=== PATIENT | male | born 1985 | race Caucasian/White ===

== ENCOUNTER 2024-12-21 11:36 | Outpatient (CLI) | payer BC, SELFPAY ==
--- NOTE | ~2024-12-21 | MR_ITS ---
MRI of the brain Clinical History: Headache Technique: Axial and sagittal T1-weighted images were acquired. These were followed by axial T2-weigh mirlande, diffusion weighted, gradient, and FLAIR images. Following intravenous administration of 20 cc Pr oHance gadolinium, T1-weighted fat-sat imaging was performed in the axial and coronal planes. Findings: No significant signal abnormality seen in the brain parenchyma. No acute infarct, internal hemorrhage, or mass lesion. Ventricles and subarachnoid spaces are unremarkable. Orbits are unremarkable. Paranasal sinuses and m astoid air cells are clear. Major arterial flow voids are intact. Sagittal midline structures are intact. No abnormal postcontrast enhancement identified. IMPRESSION: Unremarkable exam. Reviewed, dictated and finalized at location M. IMPRESSION: Unremarkable exam.
--- NOTE | ~2024-12-21 | XR_ITS ---
EXAM/PROCEDURE: XR chest 1V - 12/21/2024 12:15 CDT HISTORY: 39 years old Male with RULE OUT FOREIGN BODY FOR MRI TECHNIQUE: Two view(s) of the chest. COMPARISON: None available. FINDINGS: LUNGS/ PLEURA: No focal consolidation. No appreciable pneumothorax or large pleural effusion. HEART/ MEDIASTINUM: Heart appears normal in size. BONES: No acute osseous abnormality. OTHER: Visualized upper abdomen is unremarkable. IMPRESSION: No foreign body seen. Reviewed, dictated and finalized at location A. IMPRESSION: No foreign body seen.
--- OUTSIDE RECORDS SUMMARY | 2024-12-21 11:39 | XMS_ITS | Clinical Summary ---
Author Organization [facility] Care Team Providers Care Wireless Cellular Technician Name Role Phone Unavailable Primary Care Provider Unavailabl e Social History Tobacco Use Types Packs/Day Years Used Date Smoking Tobacco: Never Assessed Sex and Gender Information Value Date Recorded Sex Assigned at Not on file Legal Sex Male 1:52 PM [employer] Gender Identity Not on file Sexual Orientation Not on file Plan of Treatment Health Maintenance Due Date Last Done Comments Hepatitis C Virus (HCV) Screening 1987 Hepatitis B Immunization (1 of 3 - 19+ 3-dose series) 2006 Influenza Immunization (#1) 05/12/202407/12, 07/22/2020 SARS-COV-2 Immunization ( season) 2024 07/29/2021 Respiratory Syncytial Virus (RSV) Immunization (Adult) (1 - 1-dose 75+ series) 2062 Pneumococcal Immunization Combined Aged Out 11/29/2015 No longer eligible based on patient's age to complete this topic DTaP/Tdap/Td Immunization Discontinued 07/29/2021 TdaP Immunization Completed 07/29/2021 Meningococcal Immunization (ACWY) Aged Out No longer eligible based on patient's age to complete this topic Rotavirus Immunization Aged Out No lo nger eligible based on patient's age to complete this topic
--- OUTSIDE RECORDS SUMMARY | 2024-12-21 11:39 | XMS_ITS | Continuity of Care Document ---
Author Organization [facility] Address [address] [place] [address] [place] [address] Phone Care Team Providers Care Frame Catcher Name Role Phone Pato Husain MD Unavailable Unavailable Allergies, Adverse Reactions, Alerts Substance Reaction Status Criticality No Known Allergies Active No Inform ation Medications Medication Instructions Dosage Effective Dates (start - stop) Status Comments Ativan 0.5 mg tablet take 1 Tablet by oral route every day as needed as needed 0.5 MG - Active take 1/2 tarik r before MRI, avoid driving or operate machines Crestor 10 mg tablet take 1 tablet by oral route every day 10 MG - Active nebivolol 20 mg tablet take 1.5 Tablet by oral route every day 30 MG - Active Problems Condition Type Effective Dates (start - stop) Clini severo Status Comments No Known Problems Procedures Procedure Date OFFICE/OUTPATIENT VISIT, EST OFFICE/OUTPATIENT VISIT, EST OFFICE/OUTPATIENT VISIT, EST OFFICE/OUTPATIENT VISIT, EST OFFICE/OUTPATIENT VISIT, EST OFFICE/OUTPATIENT VISIT, EST OFFICE/OUTPATIENT VISIT, EST OFFICE/OUTPATIENT VISIT, EST OFFICE/OUTPATIENT VISIT, EST OFFICE/OUTPATIENT VISIT, EST OFFICE/OUTPATIENT VISIT, EST OFFICE/OUTPATIENT VISIT, EST OFFICE/OUTPATIENT VISIT, EST PREV VISIT, EST, AGE 18-39 OFFICE/OUTPATIENT VISIT, EST OFFICE/OUTPATIENT VISIT, EST OFFICE/OUTPATIENT VISIT, EST OFFICE/OUTPATIENT VISIT, EST PREV VISIT, EST, AGE 18-39 OFFICE/OUTPATIENT VISIT, EST OFFICE/OUTPATIENT VISIT, EST OFFICE/OUTPATIENT VISIT, EST PREV VISIT, EST, AGE 18-39 OFFICE/OUTPATIENT VISIT, EST OFFICE/OUTPATIENT VISIT, EST OFFICE/OUTPATIENT VISIT, EST OFFICE/OUTPATIENT VISIT, EST OFFICE/OUTPATIENT VISIT, EST PREV VISIT, EST, AGE 18-39 OFFICE/OUTPATIENT VISIT, EST OFFICE/OUTPATIENT VISIT, EST OFFICE/OUTPATIENT VISIT, EST OFFICE/OUTPATIENT VISIT, EST PREV VISIT, NEW, AGE 18-39 Advance Directives Directive Yes / No Effective Date File Name No Information Encounters Encounter Description Practice Location Reason(s) For Visit Diagnoses Date Provider Providers Copied on Encounter OFFICE/OUTPA TIENT VISIT, EST [facility], [address] [place], [address], tel:[phone] [facility] headache1 (chief complaint) weight loss1 (chief complaint) HeadacheAbnormal weight loss Dec- 0 5 Rodrigue Harmon [address], [address] , [place]. tel:[phone] [facility], [address] [place], [address], [place] tel:[phone] [facility] No Information Dec-0 - 5 Rodrigue Harmon [address], [place], [place], [address] , [place]. [phone] OFFICE/OUTPA TIENT VISIT, EST [facility], [address] [place], [address], tel:[phone] [facility] headache1 (chief complaint) HTN (chief complaint) HeadacheParesthesia of skinEssential (primary) hypertensionOther visual disturbances 5 Rodrigue Whyte. [address], [place], [place], [address] , [place]. tel:[phone] OFFICE/OUTPA TIENT VISIT, [facility], [address], [place], [place], [address], [place] tel:[phone] [facility] HTN (chief complaint) sick (chief complaint) eye pain1 (chief complaint) Essential (primary) hypertensionAcute sinusitisAbnormal weight gainHeadache 5 Rodrigue Whyte. [address], [place], [place], [address] , [place]. tel:[phone] OFFICE/OUTPA TIENT VISIT, [facility], [address], [place], [place], [address], [place] tel:[phone] [facility] HTN (chief complaint) headache1 (chief complaint) obesity1 (chief complaint) wart1 (chief complaint) HLP (chief complaint) Essential (primary) hypertensionMixed hyperlipidemiaAbnor mal weight gainIschemic optic neuropathy, right eyeAnogenital (venereal) warts 5 Rodrigue Whyte. [address], [place], [place], [address] , [place]. tel: [phone] OFFICE/OUTPA TIENT VISIT, [facility], [address], [place], [place], [address], [place] tel:[phone] [facility] HTN (chief complaint) HLP (chief complaint) eye1 (chief complaint) obesity1 (chief complaint) Essential (primary) hypertensionIschemi c optic neuropathy, right eyeMixed hyperlipidemiaObstr uctive sleep apnea hypopneaAbnormal weight gain Fe 5 Rodrigue Whyte. [address], [place], [place], [address] , [place]. tel:[phone] OFFICE/OUTPA TIENT VISIT, [facility], [address], [place], [place], [address], [place] tel:[phone] [facility] sick (chief complaint) low T (chief complaint) eye1 (chief complaint) HLP (chief complaint) HTN (chief complaint) AOM of left earEssential (primary) hypertensionIschemi c optic neuropathy, right eyeMixed hyperlipidemiaTesti cular hypogonadism 4 Rodrigue Whyte. [address], [place], [place], [address] , [place]. tel:[phone] OFFICE/OUTPA TIENT VISIT, [facility], [address], [place], [place], [address], [place] tel:[phone] [facility] HTN (chief complaint) HLP (chief complaint) eye1 (chief complaint) sleep apnea1 (chief complaint) Essential (primary) hypertensionMixed hyperlipidemiaIsche lili optic neuropathy, right eyeObstructive sleep apnea hypopnea 4 Rodrigue Whyte. [address], [place], [place], [address] , [place]. tel:[phone] OFFICE/OUTPA TIENT VISIT, [facility], [address] [place] [place], [address], [place] tel:[phone] [facility] HLP (chief complaint) GERD1 (chief complaint) HTN (chief complaint) vision1 (chief complaint) Essential (primary) hypertensionMixed hyperlipidemiaGERD w/o esophagitisOther visual disturbancesAlcohol dependence, uncomplicated 4 Rodrigue Whyte. [address], [place], [place], [address] , [place]. tel:[phone] OFFICE/OUTPA TIENT VISIT, [facility], [address], [place], [place], [address], [place] tel:[phone] [facility] HTN (chief complaint) Essential (primary) hypertensionAbnorma l weight loss 3 Rodrigue Whyte. [address], [place], [place], [address] , [place]. tel:[phone] OFFICE/OUTPA TIENT VISIT, [facility], [address], [place], [place], [address], [place] tel:[phone] [facility] HLP (chief complaint) LFT (chief complaint) glucose1 (chief complaint) Mixed hyperlipidemiaHyper glycemiaAlcohol dependence, uncomplicatedLiver disease 0 3 Rodrigue Whyte. [address], [place], [place], [address] , [place]. tel:[phone] OFFICE/OUTPA TIENT VISIT, [facility], [address], [place], [place], [address], [place] tel:[phone] [facility] HTN (chief complaint) HLP (chief complaint) GERD1 (chief complaint) COVID (chief complaint) Essential (primary) hypertensionMixed hyperlipidemiaGERD w/o esophagitisViral infection 3 Rodrigue Harmon [address], [place], [place], [address] , [place]. tel:[phone] OFFICE/OUTPA TIENT VISIT, [facility], [address], [place], [place], [address], [place] tel:[phone] [facility] COVID1 (chief complaint) Viral infection 3 Rodrigue Whyte. [address], [place], [place], [address] , [place]. tel:[phone] OFFICE/OUTPA TIENT VISIT, [facility], [address], [place], [place], [address], [place] tel:[phone] [facility] sick (chief complaint) Viral infection 3 Rodrigue Harmon [address], [place], [place], [address] , [place]. tel:[phone] PREV VISIT, [facility], AGE 18-39 [facility], [address], [place], [place], [address], [place] tel:[phone] [facility] physical (chief complaint) Encounter for general adult medical examination without abnormal findings 3 Rodrigue Whyte. [address], [place], [place], [address] , [place]. tel:[phone] OFFICE/OUTPA TIENT VISIT, [facility], [address], [place], [place], [address], [place] tel:[phone] [facility] fall (chief complaint) bradycardi a1 (chief complaint) anxiety1 (chief complaint) sleep apnea1 (chief complaint) Generalized Anxiety DisorderPrimary central sleep apneaEssential (primary) hypertensionOther headache syndromePneumothora x 2 Rodrigue Whyte. [address], [place], [place], [address] , [place]. tel:[phone] OFFICE/OUTPA TIENT VISIT, [facility], [address], [place], [place], [address], [place] tel:[phone] [facility] COVID (chief complaint) Viral infection 2 Rodrigue Whyte. [address], [place], [place], [address] , [place]. tel:[phone] OFFICE/OUTPA TIENT VISIT, [facility], [address], [place], [place], [address], [place] tel:[phone] [facility] HLP (chief complaint) HTN (chief complaint) GERD1 (chief complaint) anxiety1 (chief complaint) sick (chief complaint) sleep apnea1 (chief complaint) Primary central sleep apneaMixed hyperlipidemiaEssen tial (primary) hypertensionOther gastritis without bleedingGeneralized Anxiety DisorderViral infection 2 Rodrigue Whyte. [address], [place], [place], [address] , [place]. tel:[phone] OFFICE/OUTPA TIENT VISIT, [facility], [address], [place], [place], [address], [place] tel:[phone] [facility] cyst1 (chief complaint) HTN (chief complaint) HLP (chief complaint) sleep apnea1 (chief complaint) GERD1 (chief complaint) Tinea barbaeEssential (primary) hypertensionSleep apneaHyperlipidemia Generalized Anxiety DisorderGERD w/o esophagitis 2 Rodrigue Harmon [address], [place], [place], [address] , [place]. tel:[phone] PREV VISIT, EST, AGE 18-39 [facility], [address] [place], [address], [place] tel:[phone] [facility] sick (chief complaint) sleep apnea1 (chief complaint) HTN (chief complaint) GERD1 (chief complaint) anxiety1 (chief complaint) Encounter for general adult medical examination without abnormal findings 2 Rodrigue Harmon [address], [place], [place], [address] , [place]. tel:[phone] OFFICE/OUTPA TIENT VISIT, [facility], [address] [place], [address], [place] tel:[phone] [facility] shoulder pain1 (chief complaint) HTN (chief complaint) fatigue1 (chief complaint) FatigueMale erectile dysfunction, unspecifiedPain in left shoulderEssential (primary) hypertension 1 Rodrigue Harmon [address], [place], [place], [address] , [place]. tel:[phone] OFFICE/OUTPA TIENT VISIT, [facility], [address] [place], [address], [place] tel:[phone] [facility] shoulder pain1 (chief complaint) Well child HPI (chief complaint) ED1 (chief complaint) Pain in left shoulderEssential (primary) hypertensionMale erectile dysfunction, unspecifiedFatigue 1 Rodrigue Harmon [address], [address] [place], [address] , [place]. tel:[phone] OFFICE/OUTPA TIENT VISIT, [facility], [address] [place], [address], [place] tel:[phone] [facility] GERD1 (chief complaint) anxiety1 (chief complaint) HLP (chief complaint) HTN (chief complaint) sleep apnea1 (chief complaint) Sleep apneaHyperlipidemia Essential (primary) hypertensionGeneral ized Anxiety DisorderGERD w/o esophagitis 1 Rodrigue Harmon [address], [place], [place], [address] , [place]. tel:[phone] PREV VISIT, EST, AGE 18-39 [facility], [address], [place], [place], [address], [place] [phone] [facility] physical (chief complaint) Encounter for general adult medical examination without abnormal findings 1 Rodrigue Harmon [address], [place], [place], [address] , [place]. tel:[phone] OFFICE/OUTPA TIENT VISIT, [facility], [address], [place], [place], [address], [place] [phone] [facility] tinnitus1 (chief complaint) HLP (chief complaint) sleep apnea1 (chief complaint) HyperlipidemiaSleep apneaTinnitus, bilateral 0 Rodrigue Harmon [address], [place], [place], [address] , [place]. tel:[phone] OFFICE/OUTPA TIENT VISIT, [facility], [address], [place], [place], [address], [place] [phone] [facility] tinnitus1 (chief complaint) HTN (chief complaint) sleep apnea.1 (chief complaint) HLP (chief complaint) anxiety1 (chief complaint) Sleep apneaHyperlipidemia Generalized Anxiety DisorderEssential (primary) hypertensionTinnitu s, bilateral 0 Rodrigue Harmon [address], [place], [place], [address] , [place]. tel:[phone] Referring Provider: Baldemar Jules [address], [place], [place], [address]. tel:[phone] OFFICE/OUTPA TIENT VISIT, EST [facility], [address], [place], [place], [address], [place] tel:[phone] [facility] HTN (chief complaint) headache1 (chief complaint) sleep apnea1 (chief complaint) Essential (primary) hypertensionHeadach eSleep apneaTinnitus, bilateral Feb- 0 Rodrigue Whyte. [address], [place], [place], [address] , [place]. tel:[phone] Referring Provider: Baldemar Jules [address], [place], [place], [address]. tel:[phone] OFFICE/OUTPA TIENT VISIT, [facility], [address], [place], [place], [address], [place] tel:[phone] [facility] HTN (chief complaint) headache1 (chief complaint) GERD1 (chief complaint) HLP (chief complaint) asthma1 (chief complaint) GERD w/o esophagitisHeadache Essential (primary) hypertensionGeneral ized Anxiety DisorderHyperlipide miaUnilateral emphysema 0 Rodrigue Whyte. [address], [place], [place], [address] , [place]. tel:[phone] Referring Provider: Baldemar Jules [address], [place], [place], [address]. tel:[phone] OFFICE/OUTPA TIENT VISIT, [facility], [address], [place], [place], [address], [place] tel:[phone] [facility] HLP (chief complaint) anixiety1 (chief complaint) headache1 (chief complaint) HTN (chief complaint) HyperlipidemiaEssen tial (primary) hypertensionHypergl ycemiaSleep apneaHeadacheGERD w/o esophagitisGenerali zed Anxiety Disorder 0 Rodrigue Whyte. [address], [place], [place], [address] , [place]. tel:[phone] Referring Provider: Baldemar Jules [address], [place], [place], [address]. tel:[phone] PREV VISIT, EST, AGE 18-39 [facility], [address], [place], [place], [address], [place] tel:[phone] [facility] Physical (chief complaint) Encntr for general adult medical exam w/o abnormal findings 0 Rodrigue Whyte. [address], [place], [place], [address] , [place]. tel:[phone] Referring Provider: Pato Husain, [address], [place], [place], [address]. tel:[phone] OFFICE/OUTPA TIENT VISIT, [facility], [address], [place], [place], [address], [place] tel:[phone] [facility] lung bullae1 (chief complaint) GERD1 (chief complaint) palpitatio n1 (chief complaint) HLP (chief complaint) rash1 (chief complaint) Unilateral emphysemaHyperlipid emiaEssential (primary) hypertensionGERD w/o esophagitisEczemaLi renee disease 9 Rodrigue Whyte. [address], [place], [place], [address] , [place]. tel:[phone] Referring Provider: Pato Husain [address], [place], [place], [address]. tel:[phone] OFFICE/OUTPA TIENT VISIT, [facility], [address], [place], [place], [address], [place] tel:[phone] [facility] sick1 (chief complaint) GERD1 (chief complaint) LFT (chief complaint) HTN (chief complaint) GERD w/o esophagitisUpper respiratory infectionLiver diseaseEssential (primary) hypertension 9 Rodrigue Whyte. [address], [place], [place], [address] , [place]. [phone] Referring Provider: Baldemar Jules [address], [place], [place], [address]. tel:[phone] OFFICE/OUTPA TIENT VISIT, [facility], [address], [place], [place], [address], [place] tel:[phone] [facility] HLP (chief complaint) LFT1 (chief complaint) testicular 1 (chief complaint) sleep apnea1 (chief complaint) mole1 (chief complaint) Liver diseaseEssential (primary) hypertensionHyperli pidemiaCellulitis of groinSleep apneaNevus, non-neoplastic 8 Rodrigue Whyte. [address], [place], [place], [address] , [place]. tel:[phone] Referring Provider: Baldemar Jules [facility] [address], [place], [place], [address]. tel:[phone] OFFICE/OUTPA TIENT VISIT, [facility], [address] [place], [address], [place] tel:[phone] [facility] headache1 (chief complaint) LFt (chief complaint) lung bleb1 (chief complaint) scrotum1 (chief complaint) sleep apnea1 (chief complaint) Cellulitis of groinHeadacheLiver diseaseSleep apneaEssential (primary) hypertension 8 Rodrigue Whyte. [address], [facility] [place], [address] , [place]. tel:[phone] Referring Provider: Baldemar Jules [facility] A, [place], [place], [address]. tel:[phone] PREV VISIT, NEW, AGE 18-39 [facility], [address] [place], [address], [place] tel:[phone] [facility] PHysical (chief complaint) Encntr for general adult medical exam w/o abnormal findings 8 Rodrigue Whyte. [address], [place], [place], [address] , [place]. tel:[phone] Referring Provider: Pato Husain [address] [facility] [address], [place], [place], [address]. tel:[phone] Family History Family Member Type Diagnosis Age At Onset Brother Problem (finding) Alive and well Father Problem (finding) Coronary artery disease 6 Mother Problem (finding) palpitation, migraine Payers Payer name Insurance type Covered republican ID Julito barlow(s) [facility] CI [id number] Social History Type Description Quantity Date Captured Comments Alcohol Use Details No Caffeine Use Details Unknown Tobacco Use Status Current non-smoker Smoking Status Never smoker Sex Male Vital Signs Date / Time: Height Weight BMI Pulse Rate Blood Pressure Temperature Respiratory Rate Body Surface Area Head Circumference BMI percentile Pulse Ox Inhaled Ox 2:10 PM 74.00 in 267.60 lbs 34.3 6 kg/m eter (2) 61 /min 130/80 mm[Hg] 97.7 F 16 /min Chief Complaint And Reason For Visit From encounter dated '12/19/2024 14:07'. headache1 (chief complaint). Description: Pt has vague headache with some facial burning. Pt deniesany facial droop Pt states that he took tegretol for several days and his facial burning resolved ,Pt states that he still has some vague headache but seems better. Pt is off tegretol. Pt denies any acute vision change, his connective tissue panel and ESR and CrP was all normal his bp is ok Pt supposes to do MRi of brain but was canceled at last moment due to unsure about whether he has metal part in his lung or not from previous lung surgery. weight loss1 (chief complaint). Description: pt has been losing weight with semaglutide 0.25 mg weekly x 3 weeks and he lost some weight. Pt tolerating semaglutide well Plan Of Treatment Date Type Action Status Goal Special diet education compl eted Goal Special diet education compl eted Goal Special diet education compl eted Goal Special diet education compl eted Goal Special diet education compl eted Referral Ordered: MRI BRAIN W/O & W/DYE ordered Referral Ordered: Urology (related to Anogenital (venereal) warts) ordered Referral Ordered: Referrals: Urology. Evaluate and treat ordered Referral Ordered: Ophthalmology (related to Other visual disturbances) ordered Referral Ordered: Referrals: Ophthalmology. Evaluate and treat ordered Referral Ordered: Physical Therapy (related to Pain in left shoulder) ordered Referral Referred To: Jeevan COTTON, Michael Brown S [facility]
[place] [address] [place], [place], [id number] Ordered: Referrals: Jeevan COTTON, Michael Trevino. Evaluate and treat ordered Referral Ordered: US EXAM, EXTREMITY ordered Referral Ordered: SHOULDER XRAY 2+ VIEWS Left ordered Referral Referred To: Physical Therapy Ordered: Referrals: Physical Therapy. Evaluate and treat ordered Referral Ordered: SLEEP STUDY, ATTENDED ordered Referral Referred To: Chandler Troncoso [facility] [place], [id number] Ordered: Referrals: Chandler Troncoso. Evaluate and treat ordered Referral Ordered: Pulmonology (related to Unilateral emphysema) ordered Referral Ordered: CT THORAX W/DYE ordered Referral Ordered: Referrals: Pulmonology. Evaluate and treat ordered Referral Ordered: Shaq Olivas [facility] : Surgery (related to Nevus, non-neoplastic) ordered Referral Referred To: Shaq Olivas [address] [place], [place] [id number] Ordered: Referrals: [facility] : Surgery. Shaq Olivas. Evaluate and treat ordered Referral Ordered: US EXAM, ABDOM, COMPLETE ordered Referral Ordered: US TESTES-SCROTAL ordered History Of Present Illness Encounter Date Complaint History Of Prese nt Illness weight loss1 pt has been losi ng weight with semaglutide 0.25 mg weekly x 3 weeks and he lost some weight. Pt tolerating semaglutide well headache1 Pt has vague hea dache with some facial burning. Pt denies any facial droop Pt states that he took tegretol for several days and his facial burning resolved ,Pt states that he still has some vague headache but seems better. Pt is off tegretol. Pt denies any acute vision change, his connective tissue panel and ESR and CrP was all normal his bp is ok Pt supposes to do MRi of brain but was canceled at last moment due to unsure about whether he has metal part in his lung or not from previous lung surgery. HTN Pt has HTN Pt ta kes 30 mg bystolic and his bp is ok . headache1 Pt has been havi ng intermittent facial burning sensation, spot pain all over scalp and forehead and face and pain behind eyes. Pt is seeing ophthalmology and neurology. Pt states that the burning sensation is so bad which makes him not able to function. Pt has been having above symptoms for one month Pt denies any nausea, vomiting. Pt denies any photophobia Pt does not feel he has headache. Pt just went to ER last week for above and he was evaluated by ophthalmology and rule out of any acute eye issue. Pt did see neurology who told him that he has migraines .Pt does not feel that he has migraine. Pt states that discomfort is constant. Pt currently pointing to different part of his scalp and face where he is experiencing burning pain Pt moran snot use any drugs Pt denies any speech issue or any weakness. Pt denies any head injury or waking up at night with headache .. Pt denies any facial droop HTN Pt has HTN pt ta kes bystolic 30 mg and his bps 140-170 systolic at home Pt denies any chest pain sick pt c/o sinus con gestion, productive cough for 8 days. Pt c/o clear phlegm. Pt denies any fever or sob eye pain1 Pt c/o pressure type of pain behind left eye for 1.5 days Pt denies any vision change. Pt denies any nausea, vomiting Pt does have history of migraine and also optic neuropathy. wart1 pt has a large w art around left scrotum area for many years. pt denies any bleeding HLP Pt has HLP Pt mazariegos s optic neuropathy Pt tolerating crestor ok headache1 Pt has optic abbi ropathy with migraine Pt is seeing neurology and also ophthalmology Pt was given qulipta but he has not started it yet Pt states that he has not been having headache lately obesity1 Pt is obese His insurance does not cover wegovy. Pt failed diet and exercise . HTN pt has HTN Pt ta kes bystolic 20 mg daily and his bp is borderline high Pt tolerating it ok Pt denies any chest pain or headache . HTN pt has HTN. Pt t akes spironolactone, labetalol and irbesartan but he states that he feels bad overall with above meds. He feels that his eyes are red, he has frequent headache, fatigue and his bp is still high sometimes and he wants to get off all above meds and try something else. pt states that he has not slept well either. Pt does have sleep apnea and he uses cpap nightly HLP Pt has HLP pt is on feno. 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 he was referred to neurology and he has leti with neurology next week. he had negative head cT recently Pt has some vague headache frequently obesity1 Pt is obese. his BMI is 35 Pt wants to try GLP1 for weight loss low T Pt has borderlin e low T Pt denies any testicular pain, atrophy or nodule eye1 Pt has right isc hemic optic neuropathy ,pt has leti with neurology in August Pt denies any vision change. Pt states that his vision is ok HLP Pt has high TG P t is on feno Pt needs it refilled HTN Pt has HTN pt ta kes spironolactone, labetalol and irbesartan and his bp is ok sick Pt c/o feeling s ick for one week including fever as high as 101, chills, productive cough with green phlegm, sore throat, difficulty with swallowing. Pt denies any sob. Pt denies any GI symptoms. pt has been taking a lot of OTC meds but has not helped. Pt c/o bilateral ear pain HTN Pt has HTN Pt is back on labetalol, irbesartan and spironolactone. He still has plenty of medication left. His bp is ok HLP Pt has high TG P t is back on feno now. Pt denies any myalgia. His TG is borderline high eye1 Pt has acute rig ht eye vision loss and he was evaluated by ophthalmology who recommended ER visit and he was admitted and subsequently transferred to [facility] due to ? small CVA behind right optic artery. Pt will see retina specialist next week and he was evaluated by neuroophthalmologist at [facility]. 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 Pt denies any fatigue GERD1 Pt has history o f chronic GERD Pt had benign EGD Pt has not had any GERD symptoms and he weaned himself off pepcid. HLP Pt weaned off fe no on his own Pt is trying to diet vision1 Pt was drinking heavy alcohol 3 days ago and he noticed acute onset of blurred vision on right eye only with some visual field defects on and off and continue as of today. He checked his bp which was 180/115. Pt did have some chest pain and headache as well. Pt denies any speech issue Pt denies any weakness. pt states that he has not drank any alcohol since 3 days ago and he currently has mild headache but no chest pain. pt notices some throbbing headache on top of head. 11/18 HTN Pt weaned off al l bp meds on his own and his bp is ok today. HTN Pt has HTn pt ta kes spironolactone/hctz and irbesartan and his bp is around 130/80 Pt states that he has been diet and exercising and he lost some weight and he feels something is restricting him from exercise Pt denies any mental or physical fatigue .Pt states that his bp meds maybe causing him to be fatigue. He denies any headache. He wants to try lower dose of BP meds. He denies any dizziness LFT Pt has mild high LFT Pt denies any abd pain or jaundice Pt has been drinking more alcohol HLP Pt has persisten t and worsening triglycerides Pt does drink a lot of alcohol, especially lately . glucose1 Pt has borderlin e high Pt denies any polyuria polydipsia. HLP Pt has HLP pt ta kes feno and doing ok pt denies any myalgia GERD1 Pt has gastritis and GERD Pt takes pepcid and doing ok Pt denies any abd pain or nausea, vomiting . COVID Pt has recovered from recent COVID recently Pt has not received the new boosters yet. HTN Pt has HTN Pt ta kes aldactazide and irbesartan and his bp is stable. COVID1 Pt tested positi ve for COVID since 4 days ago .Pt c/o mild sore throat, mild dry cough, mild headache, and fatigue. Pt feels very mild sob but not bad. pt feels slightly warm around 99 but not spiking temp. Pt is vaccinated for COVID with one booster and the last booster was over one year ago. Pt was infected with COVID one year ago and he tolerated the condition fairly well. Pt denies any GI symptoms Pt denies any dysphagia. Pt states that he feels overall better sine 4 days ago. sick Pt c/o acute ons et of low grade fever around 99, ear pain, tinnitus, sinus congestion, mild dizziness, sore throat, since two days ago. Pt denies any cough or sob. Pt tested negative for COVID today. Pt denies any vertigo or hearing loss physical Pt needs annual physical pt has HTn Pt takes aldactazide and irbesartan and his bp is stable Pt has GERD and he is doing ok with pepcid. Pt has HLP Pt takes feno pt denies any myalgia. Pt has history of recurrent left side pneumothorax s/p recent left lobe thoracoscopy with biopsy with chest tube placement and pulmonary bleb removal. Pt is doing ok post op Pt denies any chest pain or sob. sleep apnea1 Pt uses cpap but cpap was stopped due to collapsed lung. fall Pt tripped over a shoe and fell downstairs two weeks ago and he hit his head and chest on the concrete. Pt denies any LOC. Pt started to feel sob with headache after the fall and he went to ER on 08/23/22 and he was found to have collapsed lung and head concussion. Pt had head and chest CT. Pt states that chest tube had to be placed and subsequently removed. Pt currently breathing ok. Pt denies any sob. Pt states that headache resolved Pt denies any vision change or nausea, vomiting. Pt denies any dizziness. Pt currently denies any headache or sob or chest pain. Pt denies any mental status change. anxiety Pt has history o f anxiety and depression Pt has been taking effexor for long time and he feels fine ad he wants to wean off effexor. Pt denies any suicidal or homicidal thought Pt denies any crying spells bradycardia1 Pt was slightly bradycardic in hospital and labetalol was stopped and his HR is ok now His bp is ok Pt denies any chest teri or headache or sob. or palpitation Pt denies any syncope COVID Pt started to mazariegos ve sore throat, dry cough, mild sob, fever as high as 101.9, sinus congestion since 4 days ago. Pt tested positive for COVID 3 days ago. Pt is fully vaccinated for CVOID with one additional booster. Pt denies any GI symptoms. Pt feels slightly better and he has fever 100.1 today. HLP Pt has HLP Pt bonnie kaye and his lipid profile is ok .Pt has borderline high TG Pt denies any myalgia HTN Pt has HTN. Pt t akes labetalol, irbesartan, and aldactazide and his bp is stable Pt denies any chest pain or headache. GERD Pt has GERD and gastritis. Pt doing ok with pepcid Pt denies any abd pain or nausea. anxiety Pt has chronic a nxiety and depression Pt doing ok with effexor pt denies any suicidal or homicidal thought pt denies any crying spells sick pt c/o mild sore throat, dry cough, sinus congestion ,left neck lymph swelling for two weeks Pt c/o left ear pain. Pt denies any fever, chill, sob or headache. 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 Pt notices improvement of energy level and sleep quality with cpap cyst1 Pt c/o multiple cystic lesion on bilateral lane area for several months Pt denies an pain Pt notices mild hair loss around the cystic area. Pt denies any drainage, Pt tried to pop the area with some clar drainage. Pt notices mild itching. HTN Pt takes irbesar yanez and aldactazide and he is not taking labetalol for unknown reason and his bp is high pt denies any chest pain or headache HLP Pt has HLP. Pt t marielos parrao pt denies any myalgia. 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 Pt states that machine also needs to be replaced but he is waiting for new machine. sick Pt c/o chronic f atigue but worse lately. Pt c/o fever as high as 100,, cough, chest pain, running nose, very mild sob started 3 weeks ago. Pt states that above symptoms lasted for one week and resolved. Pt currently only feels fatigue but no other symptoms. Pt is fully vaccinated for COVID. HTN Pt has HTN Pt ta kes aldactazide and irbesartan and he restarted labetalol recently due to BP is high again. Pt felt severe fatigue before starting labetalol. Pt states that his bp has been around 150/100 without labetalol but now is around 130/89 with labetalol. Pt denies any chest pain or headache anxiety1 Pt has chronic a nxiety and depression Pt doing ok with effexor. Pt denies any suicidal or homicidal thought Pt denies any crying spells GERD1 Pt has chronic G ERD Pt takes pepcid and doing ok. pt needs refill Pt denies any abd pain or nausea. shoulder pain1 Pt c/o acute ons et of left shoulder pain for 2-3 months. Pt denies any injury Pt does play softball but he is not a pitcher and he is righty. Pt does sleep on left side due to cpap which he changed to right side due to left shoulder pain/ Pt notices let shoulder pain both resting and with movement. Pt notices dull pain left shoulder area which is worse with movement. Pt denies any swelling, redness or warmth Pt denies any neck pain or any left radiculopathy Pt notices mild and occasional left finger tinging which seems to come from left shoulder area. Pt denies any left hand weakness .Pt denies any cold extremity. Pt had normal left shoulder x ray and his left shoulder ultrasound showed AC joint arthritis and left subacromial and subdeltoid bursitis. HTN Pt has HTN Pt ta kes aldactazide and also irbesartan and his bp is stable at home. Pt is off labetalol. His bp is around 130/70s. fatigue1 Pt states that h is exercise intolerance and also ED resolved without labetalol. Pt denies any chest pain or sob shoulder pain1 Pt c/o acute ons et of left shoulder pain for 4 weeks Pt denies any injury Pt does play softball but he is not a pitcher and he is righty. Pt does sleep on left side due to cpap which he changed to right side since last month Pt notices let shoulder pain both resting and with movement. Pt notices dull pain left shoulder area which is worse with movement. Pt denies any swelling, redness or warmth Pt denies any neck pain or any left radiculopathy Pt notices mild and occasional left finger tinging which seems to come from left shoulder area. Pt denies any left hand weakness .Pt denies any cold extremity Well child HPI pt states that h e tries to ride stationary bike for exercise but he feels that something is holding him back with excessive amount of fatigue, which is different than typical fatigue from exercise .Pt denies any sob or chest pain He states that he feels that when he gets to certain level of exercise, he just crash and unable to go on. He noticed above since restarting on labetalol, aldactazide and also irbesartan since his last visit ED1 Pt notices mild ED since several weeks ago since restarting labetalol, aldactazide and also irbesartan. Pt is noncompliant and he has not been taking above meds daily for long time and he kind take one or the other randomly every other day and is very confusing and he just restarted to take all of above bp meds since 05/06/21 and he soon noticed ED symptoms. 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 Pt doing ok with pepcid Pt denies any abd pain or nausea or weight loss HLP Pt has high TG P t denies any myalgia HTN Pt has HTN. Pt t akes irbesartan, labetalol, and aldactazide but he is noncompliant and he skips a lot of doses Pt denies any chest pain or headache anxiety1 Pt has chronic a nxiety and depression and he takes effexor and doing ok. Pt denies any suicidal or homicidal thought Pt denies any crying spells. physical Pt needs annual physical pt has HTn Pt takes labetalol. irbesartan and spironolactone/hctz and his bp is stable Pt has sleep apnea and his new setting is 15 cm. His setting was at 10 previously and he feels better now with 15 cm setting. He has GERD and he takes pepcid and doing ok Pt has anxiety and depression and he is doing ok with effexor Pt denies any suicidal or homicidal thought Pt denies any crying spells tinnitus1 pt has tinnitus. Pt is seeing ENT. Pt supposes to have MRI of brain but he is claustrophobic and unable to tolerate MRI. PT needs something for anxiety for the MRI procedure. HLP Pt takes fenofib rate. Pt still has not done lab yet. sleep apnea1 Pt c/o chronic f atigue,, Pt snores at night. Pt sometimes stop breathing at night Pt is morbidly obese Pt had inconclusive home sleep study. Sleep specialist recommended in lab sleep study sleep apnea.1 Pt had positive sleep study 10 years ago Pt has not been wearing cpap, however ,Pt does snore and he feels fatigue. A repeat home sleep study was denied. He had inconclusive home sleep study recently and he supposes to do in lab sleep study but he never did. tinnitus1 Pt has chronic b ilateral tinnitus. Pt denies any hearing loss. Pt did see ENT and he had normal hearing study. ENT plans to discuss MRI of brain or referral to tinnitus clinic and pt supposes to make follow up leti with ENT but he never did. PT denies any ear pain or sinus congestion anxiety1 PT has chronic a nxiety and depression. PT doing ok with effexor. Pt needs refill. PT denies any suicidal or homicidal thought PT denies any crying spells HLP Pt has high tG P t is on feno PT has not done lab yet. pt denies any myalgia HTN Pt is very confu sed about his bp meds. He states that he is on lisinopril ,irbesartan, and labetalol and spironolactone/hctz? 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 Pt is obese and he snores and he feels fatigue chronically headache1 Pt has chronic h eadache. Pt is on topamax. Pt c/o ringing both ears for 4 weeks. Pt denies any ear pain. PT denies any hearing loss. Pt states that the tinnitus triggers his headache .Pt states that tinnitus is present at all time HTN Pt states that h e is back on irbesartan, labetalol and also spironolactone/hctz and he states that his BP wildly fluctuates from 120-150 systolic. Pt denies any dizziness HTN Pt has HTN. Pt s aw his apprentice and he was taken off irbesartan and spironolactone/hctz and his BP is around 160/90 without above meds Pt is on labetalol only. He denies any headache . GERD1 Pt has chronic G ERD. Pt had EGD done several months ago which was benign. pt does have daily GERD ,Pt doing ok with zantac but needs to change meds HLP Pt has HLP Pt bonnie kaye Pt has not done lab yet headache1 he has not been taking topamax. he still has headache here and there. Pt denies any head injury or waking up at night with headache asthma1 Pt states that laura torres has phlegm cough every time he takes a deep breath x 3 months. Pt denies any hemoptysis, or chest pain. Pt feels occasional sob. Pt has bullae on chest CT . HLP Pt has very high TG Pt states that he does not eat a lot of carbs .He does not drink alcohol more than socially. He has mildly high glucose .pt denies any polyuria, polyuria headache1 Pt c/o pressure headache on top of scalp and behind eyes since last July pt denies any head injury Pt denies any waking up at night with headache Pt denies any trigger factor. Pt feels nausea with headache anixiety1 pt has anxiety a nd panic attacks Pt denies any depression or any suicidal thought. Pt states that effexor does help his anxiety and panic attacks .pt denies any crying spells HTN Pt takes aldacta zide, labetalol and also irbesartan from cardiology .pt thinks that he thinks that he started to have headache when he started above medication Physical Pt needs annual physical pt has HTN Pt takes labetalol, aldactazide and irbesartan His BP is stable. Pt has multiple vague complaints Pt has pulmonary bullae. Pt fels sob very rarely. pt states that sometimes he feels mildly sob with exercise pt has been having panic attacks. Pt denies any depression or any suicidal thought. 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 Pt is seeing eye doctor. palpitation1 Pt has HTn and p alpitation Pt did have negative holter and cardiac echo from cardiology last year. Pt takes labetalol, aldactazide and also irbesartan. He denies any chest pain or palpitation Pt needs refills HLP pt has HLP pt is working on low fat and low carb diet rash1 P notices itchin g rash dorsal left hand for two weeks. Pt denies any drainage, Pt denies any spreading GERD1 pt has GERd. Pt has not been taking zantac. Pt states that his GERD is slightly worse since stop taking zantac. Pt denies any nausea, vomiting or abd pain lung bullae1 Pt has history o f lung bullae. pt feels intermittent sob, Pt denies any hemoptysis, worsening sob. pt denies any chest pain Pt had negative cardiac echo last year which was ok Pt was cleared by cardiology. Pt states that he has been coughing more lately with clear phlegm. 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 Pt denies any nausea, vomiting. Pt denies any diarrhea Pt denies any abd pain. His apprentice gave him some protonix but he never took it LFT Pt has mildly hi gh LFT. Pt does not drink alcohol. Pt denies any abd pain or jaundice. Ultrasound of liver is ok HTN Pt has HTn and s ome LE swelling. . Pt denies any chest pain. Pt takes spironolactone/hctz labetalol and irbesartan by cardiology. His BP is stable. pt denies any sob testicular1 Resolved. 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 Pt had another in lab study recently which did not show sleep apnea. Pt has been doing well with cpap and he feels less snoring and less fatigue in the morning and rest of the day mole1 Pt has one dark mole on top of umbilicus for several years. Patient denies any size change. Patient denies any pain or bleeding. Patient denies any scabbing. HLP Pt has high chol esterol and high TG . Pt is not on any diet. LFT1 Pt has mild high LFT. Pt does not have hepatitis. pt denies any abd pain. Pt does not drink alcohol headache1 Pt denies any he adache anymore. Pt had normal head CT LFt Pt had lab done recently and his LFT was high Pt denies any abd pain lung bleb1 Pt has lung bleb and he seen CT surgeon and cardiology and was told no need for surgery Pt denies sob scrotum1 Pt notices redne ss and swelling around scrotum for 2-3 days. 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 Pt has irbestean and spironolactone and labetalol. His BP is ok. pt is seeing apprentice at [facility] for recurrent chest pain. Pt told me he has lung bleb. Pt has headache for 3 months, Pt feels pressure behind his eyes. Pt denies any nausea, vomiting, photophobia. Pt denies any acute headache Pt had normal head ct this AM Pt feels blood shot eyes. . Pt denies any sob. Pt states that his eye seems red sometimes but not now pt denies any sob pt denies any other complaints Instructions Date Instruction Additional Infor mation Special diet education Related t o Body mass index (BMI) 35.0-35.9, adult Special diet education Related t o Body mass index (BMI) 36.0-36.9, adult Elevate head of bed prior to sle ep. Related to GERD w/o esophagitis Eat smaller meals, n o eating three hours prior to bedtime. Related to GERD w/o esophagitis Avoid provocative fo ods: citrus, alcohol, coffee, chocolate, mints. 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 Related to En cntr for general adult medical exam w/o abnormal findings Special diet education Related t o Body mass index (BMI) 34.0-34.9, adult Assessments Type Assessment Date assessment Headache assessment Abnormal weight loss Mental Status Date Cognitive Assessment Orientation - Metcalfe ed to time, place, person, situation.
--- OUTSIDE RECORDS SUMMARY | 2024-12-21 11:40 | XMS_ITS | Clinical Summary ---
Author Organization [facility] Address [address] [place] [id number] Care Team Providers Care Gas Inspector Name Role Phone Pato Husain MD Primary Care Provider [phone] Allergies No known active allergies Medications lisinopril 40 MG tablet 05/07/2020 Active venlafaxine XR 37.5 MG 24 hr capsule 11/27/2019 Active fenofibrate 160 MG tablet 02/12/2020 Active famotidine 40 MG tablet 05/06/2020 Active Family History Medical History Relation Comments Heart Disease Father Cancer Mother Relation Status Comments Father Mother Social History Tobacco Use Types Packs/Day Years Used Date Smoking Tobacco: Never Smokeless Tobacco: Never Alcohol Use Standard Drinks/Week Comments Not Currently 0 (1 standard drink = 0.6 oz pur e alcohol) Sex and Gender Information Value Date Recorded Sex Assigned at Not on file Legal Sex Male 2:42 PM CDT Gender Identity Not on file Sexual Orientation Not on file Last Filed Vital Signs Vital Sign Reading Time Taken Comments Blood Pressure 149/73 09/09/2024 12:46 PM RADIOLOGIC TECHNOLOGIST MAMMOGRAM Pulse 70 09/09/2024 12:46 PM RADIOLOGIC TECHNOLOGIST MAMMOGRAM Temperature 36.4 C (97.6 F) 09/09/2024 12:46 PM RADIOLOGIC TECHNOLOGIST MAMMOGRAM Respiratory Rate 18 09/09/2024 12:46 PM RADIOLOGIC TECHNOLOGIST MAMMOGRAM Oxygen Saturation 97% 09/09/2024 12:46 PM RADIOLOGIC TECHNOLOGIST MAMMOGRAM Inhaled Oxygen Concentration - - Weight 127 kg (280 lb) 09/09/2024 12:46 PM RADIOLOGIC TECHNOLOGIST MAMMOGRAM Height 188 cm (6' 2 ) 09/09/2024 12:46 PM RADIOLOGIC TECHNOLOGIST MAMMOGRAM Body Mass Index 35.95 09/09/2024 12:46 PM RADIOLOGIC TECHNOLOGIST MAMMOGRAM Plan of Treatment Health Maintenance Due Date Last Done Comments Annual Physical 1990 Hepatitis C 2005 Hepatitis B Vaccines (1 of 3 - 19+ 3-dose series) 2006 COVID-19 Vaccine (4 - 2023-2 5 season) 2024 07/29/2021, 10/02/2020, 09/16/2020 DTaP, Tdap and Td Vaccines ( 2 - Td or Tdap) 07/29/2031 07/29/2021 Pneumococcal Vaccine: Pediatrics (0 to 5 Years) and At-Risk Patients (6 to 64 Years) Aged Out 11/29/2015 No longer eligible b ased on patient's age to complete this topic HPV Vaccines Aged Out No longer eligi ble based on patient's age to complete this topic Meningococcal B Vaccine Aged Out No l onger eligible based on patient's age to complete this topic Meningococcal Vaccine Aged Out No rachel hina eligible based on patient's age to complete this topic RSV Immunizations Under 20 Months Aged Out No longer eligible b ased on patient's age to complete this topic Additional Health Concerns Infection Onset Date Last Indicated C. difficile 04/20/2017 04/20/2017 Insurance Care Teams Gas Inspector Relationship Specialty Start Date End Date Pato Husain MD [address] [place] [id number] PCP - General FAMILY PRACTICE 09/09/24
--- OUTSIDE RECORDS SUMMARY | 2024-12-21 11:40 | XMS_ITS | Clinical Summary ---
Author Organization [facility] Address [address] [place] [address] Care Team Providers Care Flakeboard Line Tender Name Role Phone Pato Husain MD Primary Care Provider [phone] Source Comments [facility],non-owned Affiliates and Associated Physician Practices is amultiple site organization consisting of ambulatory clinics and hospital sitesin [place], [place], [place] and [place]. This disclosure is being madepursuant to the Care Everywhere program and may not contain all information available regarding this patient. Last updated 18.[facility] Allergies Active Allergy Reactions Criticality Noted Date Comments Cat Hair Extract Other Low 03/07/2018 Medications * Be aware that medications may not be up to date on this document. Alwaysverify current medications with the patient. famotidine (Pepcid) 40 MG tablet Take 1 (one) tablet by mouth once daily 08/15/2023 Active fenofibrate (Lofibra) 160 MG tablet Take 1 (one) tablet by mouth once daily 04/01/2024 Active irbesartan (Avapro) 150 MG tablet Take 1 (one) tablet by mouth once daily 04/04/2024 Active spironolactone-h ydroCHLOROthiazi de (Aldactazide 25) 25-25 MG tablet Take 1 (one) tablet by mouth once daily 04/03/2024 Active Active Problems No known active problems Social History Tobacco Use Types Packs/Day Years Used Date Smoking Tobacco: Never Smokeless Tobacco: Never Tobacco Cessation:Counseling Given: Not Answered Alcohol Use Standard Drinks/Week Comments Not Currently 0 (1 standard drink = 0.6 oz pur e alcohol) Sex and Gender Information Value Date Recorded Sex Assigned at Not on file 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 Gender Identity Not on file Sexual Orientation Not on file Last Filed Vital Signs Vital Sign Reading Time Taken Comments Blood Pressure 150/87 04/05/2024 9:06 AM CDT Pulse 77 04/05/2024 9:06 AM CDT Temperature 36.7 C (98 F) 04/04/2024 4:30 PM CDT Respiratory Rate 16 04/05/2024 9:06 AM CDT Oxygen Saturation 96% 04/05/2024 9:06 AM CDT Inhaled Oxygen Concentration - - Weight 127 kg (280 lb) 04/04/2024 12:28 AM CDT Height 188 cm (6' 2 ) 04/04/2024 12:28 AM CDT Body Mass Index 35.95 04/04/2024 12:28 AM CDT Plan of Treatment Health Maintenance Due Date Last Done Comments HIV SCREENING 2002 HEPATITIS C SCREENING 08/06/2005 DTAP/TDAP/TD VACCINES (1 - Tdap) 2006 HEPATITIS B VACCINE (1 of 3 - 19+ 3-dose series) 2006 COVID-19 VACCINE (1 - 2023-2 5 season) 2024 DEPRESSION SCREENING 09/11/2024 INFLUENZA VACCINE (Season Ended) 2025 ZOSTER VACCINE (1 of 2) 2037 HIB VACCINE Aged Out No longer eligi ble based on patient's age to complete this topic HPV VACCINE Aged Out No longer eligi ble based on patient's age to complete this topic MENINGOCOCCAL (Group B) VACC INE SHARED DECISION-MAKING Aged Out No longer eligibl e based on patient's age to complete this topic MENINGOCOCCAL GROUPS A/C/Y/W VACCINE Aged Out No longer eligible b ased on patient's age to complete this topic PNEUMOCOCCAL VACCINE Aged Out No long er eligible based on patient's age to complete this topic Insurance [facility] Care Teams Flakeboard Line Tender Relationship Specialty Start Date End Date Pato Husain MD [address] [place] [address] PCP - General Family Medicine 05/29/24
--- OUTSIDE RECORDS SUMMARY | 2024-12-21 11:40 | XMS_ITS | CONTINUITY OF CARE DOCUMENT ---
Author Name adam floresyaa Address Unknown Organization [facility] Address [address] [place] [address] Phone [phone] Care Team Providers Care Automobile Rental Representative Name Role Phone Js COTTON, Jose Unavailable [phone] AURE MARTIN MD Unavailable [phone] AURE MARTIN MD Unavailable [phone] PROBLEMS Condition Status Date Provider Notes Hypertension active ? Angely Rubio RN Chest pain-type to be determined active James Rubio RN Palpitations active Angely Rubio RN Abnormal electrocardiogram active Angely Kaufman RN Sleep apnea active Angely Rubio RN Headache active Jose Weinstein MD Shortness of breath active Jose Weinstein MD Facial pain active Angely Rubio RN ENCOUNTERS Date Type Provider Location Encounter Diag nosis 6 - 7 In-person encounter Office Visit [facility] Facial pain 6 - 6 In-person encounter Office Visit [facility] 0 - 0 In-person encounter Office Visit oJse [facility] 7 - 7 In-person encounter Office Visit [facility] 8 - 9 In-person encounter Office Visit [facility] Shortness of breath 6 - 6 In-person encounter Office Visit [facility] Headache 8 - 8 In-person encounter Office Visit [facility] 1 - 2 In-person encounter Office Visit [facility] Sleep apnea 7 - 7 In-person encounter Office Visit [facility] HypertensionChest pain-type to be determinedPalpitationsAbnormal electrocardiogram VITAL SIGNS Date Observation Value Provider Body Mass Index (Ratio) 36.54 kg/m2 deborah Weinstein MD blood pressure, cuff size regular Kr faby [place] blood pressure, diastolic 70 mm[Hg] Kr [facility] blood pressure, systolic 110 mm[Hg] Pawanrusteileen [place] respiratory rate E&M 18 /min [facility], [facility]xim[facility] 99 % [facility] pulse rate 77 /min [facility] weight E&M 277 [lb_av] [facility] cuff size large La Ines Delgado blood pressure, diastolic 82 mm[Hg] La Ines Delgado blood pressure, systolic 120 mm[Hg] LaW maxine Delgado oxygen saturation, oximetry 98 % Dg Delgado respiratory rate E&M 18 /min Dg Delgado pulse rate 76 /min Dg Delgado height E&M 73 [in_i] Dg Delgado Body Mass Index (Ratio) 36.94 kg/m2 deborah Weinstein MD blood pressure, diastolic 60 mm[Hg] Rh onhelene Woods blood pressure, systolic 110 mm[Hg] Rho nda Peggy blood pressure, cuff size large Rh sandra Woods oxygen saturation, oximetry 97 % Samanthamarcelo [place] respiratory rate E&M 18 /min Samantha Peggy pulse rate 82 /min Samantha Peggy weight E&M 280 [lb_av] Samantha Peggy height E&M 73 [in_i] Samantha Peggy Body Mass Index (Ratio) 34.83 kg/m2 Sund deborah Weinstein MD blood pressure, diastolic 63 mm[Hg] Rh onhelene Peggy blood pressure, systolic 110 mm[Hg] Rho nda Peggy blood pressure, cuff size large Rh sandra Peggy respiratory rate E&M 20 /min Samantha Peggy oxygen saturation, oximetry 96 % Samantha Peggy pulse rate 75 /min Samantha Peggy weight E&M 264 [lb_av] Samantha Peggy height E&M 73 [in_i] Samantha Peggy Body Mass Index (Ratio) 35.88 kg/m2 Ananya Rubio RN blood pressure, diastolic 75 mm[Hg] Rh onhelene Peggy blood pressure, systolic 110 mm[Hg] Rho nda Peggy oxygen saturation, oximetry 98 % Samanthasarkis [place] respiratory rate E&M 17 /min Samantha Peggy pulse rate 60 /min Samantha Peggy weight E&M 272 [lb_av] Samantha Peggy blood pressure, cuff size regular Rh sanrda Peggy height E&M 73 [in_i] Samantha Peggy Body Mass Index (Ratio) 35.09 kg/m2 Ananya Rubio RN blood pressure, cuff size regular Cr ruthy Stephens blood pressure, diastolic 90 mm[Hg] Cr ruthy Stephens blood pressure, systolic 140 mm[Hg] Cry stascotty Stephens oxygen saturation, oximetry 98 % Marlen Stephens respiratory rate E&M 17 /min Marlen Stephens pulse rate 72 /min Marlen [place] weight E&M 266 [lb_av] Marlen esat height E&M 73 [in_i] Marlen east Body Mass Index (Ratio) 34.43 kg/m2 Ananya Rubio RN blood pressure, diastolic 70 mm[Hg] Pawan isty Jagdeep blood pressure, systolic 148 mm[Hg] Kri sty [place] oxygen saturation, oximetry 98 % Kay Jagdeep respiratory rate E&M 17 /min Kay Jagdeep pulse rate 71 /min Kay Jagdeep blood pressure, cuff size regular Pawan isty Jagdeep weight E&M 261 [lb_av] Kay [place] height E&M 73 [in_i] Kay [place] Body Mass Index (Ratio) 35.75 kg/m2 Aannya Rubio RN blood pressure, diastolic 80 mm[Hg] Kr isty Jagdeep blood pressure, systolic 140 mm[Hg] Kri sty Jagdeep oxygen saturation, oximetry 97 % Kay [place] pulse rate 73 /min Kay [place] respiratory rate E&M 16 /min Kay Jagdeep blood pressure, cuff size regular Pawan isty Jagdeep weight E&M 271 [lb_av] Kay [place] height E&M 73 [in_i] Kay [place] blood pressure, diastolic 102 mm[Hg] Bao Tai blood pressure, systolic 150 mm[Hg] Sabrina Tai Body Mass Index (Ratio) 22.56 kg/m2 Lenny Weinstein MD blood pressure, diastolic, left arm 92 mm [Hg] Angely Cohen blood pressure, systolic, left arm 162 mm [Hg] Angely Cohen blood pressure, diastolic, right arm 98 m m[Hg] Angely Cohen blood pressure, systolic, right arm 140 m m[Hg] Angely Cohen oxygen saturation, oximetry 98 % Angely Cohen respiratory rate E&M 16 /min Angely gilliam pulse rate 61 /min Angely Cohen blood pressure, diastolic 92 mm[Hg] Stephania Guadalupe blood pressure, systolic 162 mm[Hg] Albert Cohen blood pressure, resting Yes Angely Cohen weight E&M 171 [lb_av] Angely Cohen height E&M 73 [in_i] Angely Cohen ALLERGIES Allergy Name Onset Date Reaction Criticality Status CATS running nose, red eyes Low Criticali ty active RESULTS Date Observation Value Provider Reference Range Interpretation Location magnesium, serum 2.2 mg/dL [facility] 1.6-2.3 calcium, serum 9.6 mg/dL [facility] 8.7-10.2 carbon dioxide, venous blood 21 mmol/L [facility] 20-29 chloride, serum 103 mmol/L [facility] 96-106 potassium, serum 4.0 mmol/L [facility] 3.5-5.2 sodium, serum 141 mmol/L [facility] [id number] 7677/06/28 urea nitrogen/creatini ne ratio, serum 11 [facility] 9-20 eGFR if 133 mL/min/{1. 73_m2} [facility] >59 eGFR if not 115 mL/min/{1. 73_m2} [facility] >59 creatinine, serum 0.89 mg/dL [facility] 0.76-1.27 urea nitrogen, blood 10 mg/dL [facility] 6-20 blood glucose, random 87 mg/dL [facility] 65-99 HISTORY OF MEDICATION USE Medication Status Instructions Dates Provider Indications Com ments ALBUTEROL SULFATE HFA 108 (90 BASE) MCG/ACT INHALATION AEROSOL SOLUTION active as needed Kay Gannon #6.7, 16 days supply, Prescribed by AURE MARTIN, Filled 02/12/2020 AZELASTINE HCL 0.05 % OPHTHALMIC SOLUTION active as needed Kay Gannon #6, 30 days supply, Prescribed by NAEEM MORALES, Filled 03/18/2020 LABETALOL HCL 200 MG ORAL TABLET active take one tablet by mouth twice daily Kay Gannon #60, 30 days supply, Prescribed by AURE MARTIN, Filled 05/04/2020 FAMOTIDINE 40 MG ORAL TABLET active take one tablet by mouth once daily Kay Gannon #30, 30 days supply, Prescribed by AURE MARTIN, Filled 05/06/2020 FENOFIBRATE 160 MG ORAL TABLET active ONE TAB. DAILY Jose Weinstein MD RANITIDINE HCL 300 MG ORAL CAPSULE completed one tab daily - Kay Gannon VENLAFAXINE HCL ER 37.5 MG ORAL TABLET EXTENDED RELEASE 24 HOUR completed one tab daily - Kay Gannon TOPIRAMATE 50 MG ORAL TABLET active one tab twice daily Dg Natarajan OMEPRAZOLE 20 MG ORAL CAPSULE DELAYED RELEASE completed ONE TAB. DAILY - Jose Weinstein MD ALDACTAZIDE 25-25 MG ORAL TABLET active ONE TAB. DAILY Jose Weinstein MD LISINOPRIL 40 MG ORAL TABLET active ONE TAB. DAILY Angely Rubio RN FELODIPINE ER 5 MG ORAL TABLET EXTENDED RELEASE 24 HOUR completed 1 tab daily - Jose Weinstein MD ISRADIPINE 5 MG ORAL CAPSULE completed take one tablet qd - Clementina Elliott PROCARDIA XL 30 MG ORAL TABLET EXTENDED RELEASE 24 HOUR completed one per day - Jose Weinstein MD #60, 30 days supply, Prescribed by STEFFANY RAJPUT, Filled 04/25/2018 METOPROLOL TARTRATE 100 MG ORAL TABLET completed one tab at bedtime on 04/22 & one tab at 10AM on 04/23 (for CT scan) - Marlen Stephens LABETALOL HCL 200 MG ORAL TABLET completed ONE TAB TWICE DAILY - Jose Weinstein MD NORVASC 5 MG ORAL TABLET completed ONE TAB. DAILY - Jose Weinstein MD LISINOPRIL 20 MG ORAL TABLET (LISINOPRIL) completed Take one tablet daily - Angely Rubio RN SOCIAL HISTORY Date Observation Value Provider social history reviewed E&M revi ewed - no changes required Angely Rubio RN social history reviewed E&M revi ewed - no changes required Angely Rubio RN smoking status Never smoker Samantha Woods smoking status Never smoker Samantha Woods smoking status Never smoker Jose Weinstein M D social history reviewed E&M revi ewed - no changes required Jose Weinstein MD smoking status Never smoker Jose Das M D social history reviewed E&M revi ewed - no changes required Jose Wenistein MD smoking status Never smoker Kay Gannon smoking status Never smoker Kay Gannon smoking status Never smoker Mónica Tai social history E&M does not smok e tobacco s mokes weed - 5 x a week e jeremy - 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 Angely Rubio RN social history reviewed E&M revi ewed - no changes required Angely Rubio RN colon surgery, hx of Colon Surgery,Hx of Angely Rubio RN smoking status Never smoker Angely Cohen FUNCTIONAL STATUS Date Observation Value Provider periodic limb movement index absent (0) Mónica Tai FAMILY HISTORY Family Member Condition Father Family History of Co ngestive Heart Failure: Father Family History Coron evelyn Heart Disease male < 55: Mother Family History Coron evelyn Heart Disease female < 65: INSURANCE PROVIDERS Payer name Policy type / Coverage type [employer] party ID [place] [employer] (2) Medicaid [id number] ADVANCE DIRECTIVES Name Date DISCUSSED - NO DECISION MADE TREATMENT PLAN Date Name Performer Cardiology:Last 4 mo nths he has had ringing in left ear with varied intensity. In last 2-3 weeks he has had throbbing pain from left jaw to left eye (left temporal region). If he tries to sleep, his left eye twitches. This week he started throbbing pain from right jaw to right eye in addition to left facial/ear symptoms. He was concerned that his symptoms are related to high BP. States his BP has been high at home. However, his BP is not high in the office even though he is having these symptoms while in the office. He also reports 2 teeth with cavities and needs root canal but doesn't have finances for it yet. advised that his sx are non vascular and will defer to medical Angely Rubio RN Cardiology:wc B P today: 110/70 P rior BP: 120/82 (11/06/2019) states home BP is 150/90 p t interested in changing his irbesartan to lisinopril since all his family is on lisinopril w ill change to lisinopril 40 Angely Rubio RN Cardiology:wc per pt Angely calderon RN Cardiology:sob - pretty good James Rubio RN Cardiology:throbbing in head does not relate to palpitations Angely Rubio RN Cardiology:uses cpap Angely calderon RN Cardiology:He thinks headaches started with labetalol. laura torres thinks the other bp meds might be causin this - maybe a dvised to cylce through his BP meds holdin one at a time for a week to see if helps laura torres will let us know Jose Weinstein MD Cardiology:Has had p ersistent constant throbbin headaches which may be getting worse. He has a negative ct head also. He is on topamax with benefit. KURTZ associted with corneal congestion. Laura torres thinks these started with labetalol. Jose Weinstein MD Cardiology:using cpa p Jose Weinstein MD Cardiology - ltr don e:AHi 1.9 on CPAP d oing well Angely Rubio RN Cardiology - ltr done:fairly wel l controlled Angely Rubio RN Cardiology - ltr don e:He has had one episode of nocturnal left uppper chest pain like a warmth radiating from his nippple to left upper chest and neck. Has since had it daily on a scale of 3/10. Last two days have been fine. try ppi Angley Rubio RN Cardiology - ltr done:wc Angely Rubio RN Cardiology -ltr done :. He went to er at [facility] - with intermittent sharp left sided chest pains radiating to left am and lasting few seconds. He was admitted due to new ekg changes and then d/yulissa after his cardiac enzymes came back negative. He then had more pains at home and went to er at [facility] and had ct chest which was negative. He was then d/yulissa from there also. discussed options a lready had negative coronary CTA c alcium score 0 n o coronary anomaly noted. kita jackson reassured pt that he does not have risk for cardiac events and would not recommend more evaluation or treatment Jose Weinstein MD Cardiology -ltr done:continue BB Angely Rubio RN Cardiology -ltr done :. He went to er at [facility] - with intermittent sharp left sided chest pains radiating to left am and lasting few seconds. He was admitted due to new ekg changes and then d/yulissa after his cardiac enzymes came back negative. He then had more pains at home and went to er at [facility] and had ct chest which was negative. He was then d/yulissa from there also. discussed options a lready had negative coronary CTA c alcium score 0 n o coronary anomaly noted. kita jackson advised pt that he does not have risk for cardiac events and would not recommend more evaluation or treatment Angely Rubio RN Cardiology -ltr done :BP well controlled at this time BP today: 110/63 P rior BP: 110/75 (06/18/2018) Angely Rubio RN Cardiology:C/o palpi tations that occur frequently, but have since improved since last visit. Continue BB. Jose Weinstein MD Cardiology: T he following medications were removed from the medication list: Felodipine Er 5 Mg Oral Tablet Extended Release 24 Hour (Felodipine) ..... 1 tab daily His updated medication list for this problem includes: Aldactazide 25-25 Mg Oral Tablet (Spironolactone-hctz) ..... Half of one tab. daily Irbesartan 150 Mg Oral Tablet (Irbesartan) ..... 1 tablet daily Labetalol Hcl 200 Mg Oral Tablet (Labetalol hcl) ..... One tab twice daily Jose Weinstein MD Cardiology:C/o radia ting chest pains that have improved since last visit with altered medication. Jose Weinstein MD Cardiology:C/o sob. Pt states he constantly has to have deep inspiration to properly breathe. Will refer to Dr. Bond for pulmonary bleb. Jose Weinstein MD Cardiology:Recently hospitalized for slurred speech at [facility] two weeks ago. Had CT scan, and was diagnosed with migraines. Head pain has worsened, but neck pain has improved since last visit. Will stop felodopine. Jose Weinstein MD Cardiology:Chest sabrina n and neck pain have improved since labetalol and nifedipine 10 mg twice a day. Sore pain with chest pain will occur occasionally. W ill prescribe procardia XL 30 mg instead of nifedipine. Jose Weinstein MD Cardiology:Chest sabrina n and neck pain have improved since labetalol and nifedipine 10 mg twice a day. Sore pain with chest pain will occur occasionally. C/o headaches that occur daily for the last three weeks, which last the entire day. Blood shot eyes as a consequence. Feels unsafe to drive due to headaches. D id not experience headaches with amlodopine. Since hospital, has switched from amlodopine to nifedipine 10 mg x2 a day. W ill prescribe procardia XL 30 mg instead of nifedipine. Jose Weinstein MD Cardiology:High BP. BP today: 140/90 P rior BP: 148/70 (04/18/2018) T he following medications were removed from the medication list: Metoprolol Tartrate 100 Mg Oral Tablet (Metoprolol tartrate) ..... One tab at bedtime on 04/22 & one tab at 10am on 04/23 (for ct scan) Norvasc 5 Mg Oral Tablet (Amlodipine besylate) ..... One tab. daily His updated medication list for this problem includes: Procardia Xl 30 Mg Oral Tablet Extended Release 24 Hour (Nifedipine) ..... One per day Labetalol Hcl 200 Mg Oral Tablet (Labetalol hcl) ..... One tab twice daily Js COTTON Cardiology -ltr done :will check home sleep study as his cpap has not been checked in long time Angely Rubio RN Cardiology -ltr done :C/o chest pains across the top of his chest, off/on. States BP at home sometimes 160/90. Feels like a sore pain, tender with palpation. Sometimes feels like a cold sensation across his chest, almost like cold water flowing over his chest. CP has caused some panic attacks. C/o his neck hurting as well today. States taking ibuprofen, pain med at home with some relief. Had ER visit, was told there was irregular heartbeat and panic attack, was prescribed xanax. Xanax helps with the panic attacks but doesn't stop the CP from occurring. C MP showed mildly elevated LFTs (AST 50, ALT 134) but rest of CMP wnl. T rop, BNP, D-dimer wnl R outine stress test 03/2018 showed no evidence of ischemia, 9:54 on Rell protocol E cho 03/2018 EF 50%, no significant valvular abnormalities. consider BB. w ill check coronary CTA and 30 day monitor Angely Rubio RN Cardiology -ltr done :consider BB. S tates BP at home sometimes 160/90. w ill stop lisinopril and start labetalol instead B P today: 148/70 P rior BP: 140/80 (03/21/2018) Angely Rubio RN Cardiology -ltr done :normal zio Angely Rubio RN Cardiology:uses cpap for 8 years h as not been checked since w ill do ihs Angely Rubio RN Cardiology:much bett er n ormal stress test n l echo Angely Rubio RN Cardiology:normal michelle huerta RN Cardiology:nl stress test Angely Rubio RN Cardiology: H is updated medication list for this problem includes: Lisinopril 20 Mg Oral Tablet (Lisinopril) ..... One tab. once daily. Angely Rubio RN Cardiology:check echo Angely huerta RN Cardiology:He starte d havign chest pains at that time and has continued since then. It comes and goes, over last two days. Occurs once every few minutes and lasts 5-10 seconds. Nomore palpitations since the episode 2 days ago. He did some push ups to see if these were stress related and there was no difference. Angely Rubio RN Cardiology:Patient c omes in for initial evaluation- he was referred by his insurance. On Monday at 6 pm when smoking weed, his heart rate increased very fast (he thinks it was up to 180 bpm) and then had sweating in his chest. Then it slowed down. The worst part of the episode lasted 5 seconds. Angely Rubio RN Date Name CT Angio Coronaries Sleep Study Home STR - Routine MAGNESIUM TSH, 3RD GENERATION W/REFLEX TO FT4 BASIC METABOLIC PANE L W/EGFR HISTORY OF PROCEDURES Procedure Date Procedure Name Provider Procedure Notes S tatus EKG Josedeborah Weinstein MD completed EKG Jose Weinstein MD completed Event Monitor Jose Weinstein MD complet ed EKG Jose Weinstein MD completed ZIO Holter Hookup Jose Weinstein MD com pleted EKG Jose Weinstein MD completed
--- OUTSIDE RECORDS SUMMARY | 2024-12-21 11:40 | XMS_ITS | Encounter Summary ---
Author Organization [facility] Address [address] [address] Care Team Providers Care Reordering Clerk Name Role Phone Pato Husain MD Primary Care Provider [phone] Encounter Details Date Type Department Care Team (Late st Contact Info) Description 04/04/2024 Ophth Exam [facility] - Ophthalmology [address] [place] [id number] Raffy Chamorro MD [address] [facility] [place] [id number] Social History Tobacco Use Types Packs/Day Years Used Date Smoking Tobacco: Never Smokeless Tobacco: Never Alcohol Use Standard Drinks/Week Comments Not Currently 0 (1 standard drink = 0.6 oz pur e alcohol) Sex and Gender Information Value Date Recorded Sex Assigned at Not on file 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
--- OUTSIDE RECORDS SUMMARY | 2024-12-21 11:40 | XMS_ITS | Clinical Summary ---
Author Organization [facility] Address [address] [place] [address] Care Team Providers Care Bar Machine Operator Production Name Role Phone Pato Husain MD Primary Care Provider [phone] Pato Husain MD Unavailable [phone] Domo Smith MD Unavailable Sidney Alexandre MD Unavailable [phone] Allergies Active Allergy Reactions Criticality Noted Date Comments Cat Dander Other (See comments) Low 03/07/2018 Cat Hair Standardized Allerg enic Extract Other (See comments) Low 03/07/2018 Medications atogepant (Qulipta) 60 mg tabletIndicatio ns:Migraine Prevention Take 60 mg by mouth daily 30 tablet 11 5 Active carBAMazepine (TEGretol) 200 mg tablet Take 1 tablet (200 mg total) by mouth 2 (two) times a day 5 Active irbesartan (AVAPRO) 150 mg tablet Take 1 tablet (150 mg total) by mouth daily 0 12/10/19 25 Discontinu ed(Patient Reported) nebivoloL (BYSTOLIC) 20 mg tablet Take 1 tablet (20 mg total) by mouth daily 5 12/10/19 25 Discontinu ed(Patient Reported) Crestor 10 mg tablet Take 1 tablet (10 mg total) by mouth daily 02/11/12/10/19 25 Discontinu ed(Patient Reported) Active Problems Problem Noted Date Diagnosed Date Subjective vision disturbance, bilateral 025 Assessment & Plan (12/09/2024 4:10 PM CDT): Pt reports he has not been able to see clearly in either eye since last year. He feels his eyes are constantly straining which is causing his eye strain and subsequently his headaches. He reports these headaches are happening frontally and occipitally and are nearly constant. Has not yet started migraine treatment. Exam today is completely stable to previous exams. No acute ophthalmic pathology evident today. Neuro ophthalmic exam is stable. Reassured pt of stable ocular health and encouraged him to consider tx for the migraines as suggested by neuro. I also suggested he continue care with his PCP to manage his systemic vascular risk factors for eye disease, including continue treatment of his hypertension and sleep apnea. I also advised that there may be a functional component to his visual and pain symptoms. Recommended pt keep his appt with neuro op as scheduled in February. 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, not intractable 11/30/2024 History of pneumothorax 08/21/2024 Optic disc drusen, right 08/20/2024 Ischemic optic neuropathy of right eye Concussion with loss of consciousness of 30 jeferson nacho or less 08/19/2024 Diverticulitis 08/19/2024 Aspiration pneumonia due to gastric secretions 0 11/23/2022 BMI 35.0-35.9,adult 11/23/2022 Large tonsils 11/23/2022 Pneumothorax on left 09/29/2022 Recurrent pneumothorax 09/28/2022 Bulla of lung 09/20/2022 Nonsmoker 09/20/2022 Traumatic pneumothorax 08/23/2022 Head trauma 08/23/2022 Vertigo 08/23/2022 Primary hypertension 08/23/2022 Acute pain of left shoulder 12/22/2021 Primary osteoarthritis of left shoulder 07/27/20 21 Obstructive sleep apnea 03/21/2018 Chest pain 03/07/2018 Palpitations 03/07/2018 Resolved Problems Problem Noted Date Diagnosed Date Resolved Date Shortness of breath 08/22/2022 10/04/19 23 Encounters Date Type Department Care Team Description 12/09/2024 1:45 PM CDT Office Visit [facility] Ophthalmology [address] [facility] 2nd Floor [address] [place] [address] Javid Wang, OD Subjective vision disturbance, bilateral (Primary Dx); Persistent migraine aura without cerebral infarction and with status migrainosus, not intractable; Optic disc drusen, right; Ischemic optic neuropathy of right eye 12/09/2024 Telephone [facility] Ophthalmology [address] [place] [address] Javid Wang Emile, OD same day appt 12/09/2024 Telephone [facility] Ophthalmology [address] [place] [address] Yusef Zamora MD new/worsening symptoms/request for sooner appt 11/28/2024 5:28 AM CDT - 11/28/2024 11:17 AM CDT Emergency [facility] Emergency Department [address] [place] [address] Marc Mcmillan MD Persistent migraine aura without cerebral infarction and with status migrainosus, not intractable (Primary Dx); Left eye pain Discharge Disposition: Discharge to home or self care 11/28/2024 Ophth Exam [facility] Ophthalmology [address] [facility] 1st [place] [address] Brooke Fuentes MD 10/31/2024 Telephone [facility] General Neurology [address] [place] [address] Solo Garcia Jr., MD [facility] 10/30/2024 1: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 Office Visit [facility] General Neurology [address] [place] [phone] Solo Garcia Jr., MD Chronic intractable headache, unspecified headache type 09/27/2024 Orders Only [facility] Ophthalmology [address] [facility] [address] [place] [phone] Ysuef Zamora MD Chronic intractable headache, unspecified headache type (Primary Dx) from Last 3 Months Surgical History Surgery Date Site/Laterality Comments COLECTOMY PLEURAL SCARIFICATION Medical History Medical History Date Comments PIPPA (obstructive sleep apnea) Diverticulitis Pneumothorax HTN (hypertension) 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 Three times a week 08/23/2022 How often do you get togethe r with friends or relatives? Three times a week 08/23/2022 How often do you attend chur ch or yazidi services? Never 08/23/2022 Do you belong to any clubs o r organizations such as christianity groups, unions, fraternal or athletic groups, or school groups? No 08/23/2022 How often do you attend meet ings of the clubs or organizations you belong to? Never 08/23/2022 Are you , , di vorced, , never , or living with a partner? Never 08/23/2022 AUDIT-C Answer Date Recorded Q1: How often do you have a drink containing alc ohol? 2-4 times a month 10/30/2024 Average Number of Drinks Not on file 025 Frequency of Binge Drinking Not on file 10/12 Overall Financial Resource Strain (CARDIA) Answe r Date Recorded How hard is it for you to pa y for the very basics like food, housing, medical care, and heating? Not hard at all 08/23/2022 PRAPARE - Transportation Answer Date Re corded In the past 12 months, has l ack of transportation kept you from medical appointments or from getting medications? No 08/11 In the past 12 months, has l ack of transportation kept you from meetings, work, or from getting things needed for daily living? No 08/23/2022 Personal Safety Answer Date Recorded Have you ever been in or are you currently in a harmful physical or emotional relationship or is someone making you feel afraid or unsafe? Denies 11/28/2024 Sex and Gender Information Value Date Recorded Sex Assigned at Not on file Legal Sex Male 3:04 PM CDT Gender Identity Not on file Sexual Orientation Not on file Obstetrics History Last Filed Vital Signs Vital Sign Reading Time Taken Comments Blood Pressure 133/96 11/28/2024 11:00 AM CDT Pulse 59 11/28/2024 11:00 AM CDT Temperature 36.7 C (98.1 F) 11/28/2024 5:15 AM CDT Respiratory Rate 13 11/28/2024 11:00 AM CDT Oxygen Saturation 95% 11/28/2024 11:00 AM CDT Inhaled Oxygen Concentration - - Weight 124.7 kg (275 lb) 11/28/2024 5:15 AM CDT Height 188 cm (6' 2.02 ) 11/28/2024 5:15 AM CDT Body Mass Index 35.29 11/28/2024 5:15 AM CDT Plan of Treatment Health Maintenance Due Date Last Done Comments Depression Screening 1985 Hepatitis C Screening 1985 DTaP/Tdap/Td Vaccine (1 - Tdap) 1998 Varicella Vaccines (1 of 2 - 13+ 2-dose series) 2000 Hepatitis B Screening 2005 Regular Well Visit/Exam 18-64 2005 Covid-19 Vaccine (3 - 2023-2 5 season) 2024 10/02/2020, 09/16/2020 Influenza Vaccine (Season Ended) 2025 Pneumococcal vaccine <65 Aged Out 11/29/2015 No longer eligible based on patient's age to complete this topic HPV Vaccines Aged Out No longer eligi ble based on patient's age to complete this topic Insurance [place] [address] [place] [address] Advance Directives For more information, please contact: [phone] * Full Code (Latest Code Status on File) Date Activated Date Inactivated Comments 09/28/2022 10:53 PM 10/01/2022 8:49 PM * Full Code Date Activated Date Inactivated Comments 08/23/2022 5:09 AM 08/26/2022 10:14 PM * Full Code Date Activated Date Inactivated Comments 04/24/2018 12:33 AM 04/25/2018 6:27 PM Care Teams Bar Machine Operator Production Relationship Specialty Start Date End Date Pato Husain MD [address] [place] [address] PCP - General 08/07/20 Pato Husain MD [address] [place] [address] Family Medicine 08/07/20 Domo Smith MD [id number] [place] [address] Surgeon Thoracic Surgery 10/01/22 Sidney Alexandre MD [address] [facility] [address] [place] [address] Consulting Physician Pulmonary Disease 10/01/22
--- OUTSIDE RECORDS SUMMARY | 2024-12-21 11:40 | XMS_ITS | Referral Summary ---
Author Organization [facility] Address [address] [place] [address] Care Team Providers Care Dividing Machine Operator Helper Name Role Phone Pato Husain MD Primary Care Provider [phone] Pato Husain MD Unavailable [phone] Domo Smith MD Unavailable [phone] Sidney Alexandre MD Unavailable [phone] Encounters Date Type Department Care Team Description 12/09/2024 Telephone [facility] Ophthalmology [address] [place] [address] Javid Wang, OD same day appt 12/09/2024 1:45 PM CDT Office Visit [facility] Ophthalmology [address] [facility] 2nd Floor [address] [place] [address] Javid Wang, OD Subjective vision disturbance, bilateral (Primary Dx); Persistent migraine aura without cerebral infarction and with status migrainosus, not intractable; Optic disc drusen, right; Ischemic optic neuropathy of right eye 12/09/2024 Telephone [facility] Ophthalmology [address] [place] [address] Yusef Zamora MD new/worsening symptoms/request for sooner appt 11/28/2024 Ophth Exam [facility] Ophthalmology [address] [place] [address] 1st [place] [phone] ZBrooke arreola MD 11/28/2024 5:28 AM CDT - 11/28/2024 11:17 AM CDT Emergency [facility] Emergency Department [address] [place] [address] Marc Mcmillan MD Persistent migraine aura without cerebral infarction and with status migrainosus, not intractable (Primary Dx); Left eye pain Discharge Disposition: Discharge to home or self care 10/31/2024 Telephone [facility] General Neurology [address] [facility] 6th Floor [address] [place] [phone] Solo Garcia Jr., MD Qulipbonnie PA 10/30/2024 1:30 PM CONTROL DIRECTOR Office Visit [facility] General Neurology [address] [facility] 6th Floor [address] [place] [phone] Solo Garcia Jr., MD Chronic intractable headache, unspecified headache type 09/27/2024 Orders Only [facility] Op[facility] [address] [place] [address] Yusef Zamora MD Chronic intractable headache, unspecified headache type (Primary Dx) from Last 3 Months Allergies Active Allergy Reactions Criticality Noted Date [...] tablet (10 mg total) by mouth daily 5 12/10/19 25 Discontinu ed(Patient Reported) Active Problems Problem [...] 08/20/2024 Ischemic optic neuropathy of right eye 4 Concussion with loss of consciousness of 30 [...] Date Shortness of breath 08/22/2022 10/04/19 23 Social History Tobacco Use Types Packs/Day Years [...] any clubs o r organizations such as sabianist groups, unions, fraternal or athletic groups, or [...] 11/28/2024 5:15 AM CDT Plan of Treatment Not on file [place] [address] [place] [address] Advance Directives For more information, please contact: [phone] * Full Code (Latest Code Status on File) Date Activated Date Inactivated Comments 09/28/2022 10:53 PM 10/01/2022 8:49 PM * Full Code Date Activated Date Inactivated Comments 08/23/2022 5:09 AM 08/26/2022 10:14 PM * Full Code Date Activated Date Inactivated Comments 04/24/2018 12:33 AM 04/25/2018 6:27 PM Care Teams Dividing Machine Operator Helper Relationship Specialty Start Date End Date Pato Husain MD [address] [place] [address] PCP - General 08/07/20 Pato Husain MD [address] [place] [address] Family Medicine 08/07/20 Domo Smith MD [address] [place] [address] Surgeon Thoracic Surgery 10/01/22 Sidney Alexandre MD [address] [place] [address] Consulting Physician Pulmonary Disease 10/01/22
== END 2024-12-21 11:37 | disposition home or self-care (01) ==
PROVIDERS: PCP Emergency Medicine; Visit Provider Emergency Medicine
DX: R51.9 Headache, unspecified (principal); R91.8 Other nonspecific abnormal finding of lung field
CPT/HCPCS: 70553; 71045; A9579

== ENCOUNTER 2025-07-07 08:38 | Outpatient (CLI) | payer BC, SELFPAY ==
--- NOTE | 2025-07-07 08:45 | EST_ITS ---
Patient Info Name: Chao Gomez Age: 39 years : 1985 Gender: Male Ht: 74 in Wt: 230 lbs BSA: 2.35 m2 HR: 79 bpm BP: 149 / 89 mmHg Exam Date: 07/07/2025 8:45 AM Patient Status: O Admit Date: 07/07/2025 Exam Type: CA stress test treadmill A treadmill exercise stress test was performed. Staff Attending Provider: Oscar Hartmann DO Exercise Technologist: Michelle Hummel Exercise Physician: Oscar Hartmann DO Summary 1. 1. Negative Rell exercise stress test for ischemic ST changes by ECG criteria. 2. 2. Reduced functional capacity, achieving 8.9 METs of workload. 3. 3. Baseline hypertension. 4. 4. Appropriate HR response to exercise. 5. 5. Appropriate HR recovery at 1 minute post exercise. 6. 6. No imaging with stress testing. 7. 7. Patient informed of the above results. Protocol: Rell Stress ECG Details Stage: REST Duration (min): 0 min : 45 sec Speed (mph): 0.0 Grade (%): 0 HR (bpm): 78 SBP (mmHg): 149 DBP (mmHg): 89 METS: --- Stage: REST Duration (min): 3 min : 55 sec Speed (mph): 0.0 Grade (%): 0 HR (bpm): 85 SBP (mmHg): 149 DBP (mmHg): 89 METS: --- Stage: STAGE 1 Duration (min): 1 min : 0 sec Speed (mph): 1.7 Grade (%): 10 HR (bpm): 108 SBP (mmHg): 149 DBP (mmHg): 89 METS: --- Stage: STAGE 1 Duration (min): 2 min : 0 sec Speed (mph): 1.7 Grade (%): 10 HR (bpm): 119 SBP (mmHg): 149 DBP (mmHg): 89 METS: --- Stage: STAGE 1 Duration (min): 3 min : 0 sec Speed (mph): 1.7 Grade (%): 10 HR (bpm): 117 SBP (mmHg): 168 DBP (mmHg): 96 METS: --- Stage: STAGE 2 Duration (min): 1 min : 0 sec Speed (mph): 2.5 Grade (%): 12 HR (bpm): 129 SBP (mmHg): 168 DBP (mmHg): 96 METS: --- Stage: STAGE 2 Duration (min): 2 min : 0 sec Speed (mph): 2.5 Grade (%): 12 HR (bpm): 138 SBP (mmHg): 171 DBP (mmHg): 92 METS: --- Stage: STAGE 2 Duration (min): 3 min : 0 sec Speed (mph): 2.5 Grade (%): 12 HR (bpm): 143 SBP (mmHg): 171 DBP (mmHg): 92 METS: --- Stage: STAGE 3 Duration (min): 1 min : 0 sec Speed (mph): 3.4 Grade (%): 14 HR (bpm): 163 SBP (mmHg): 163 DBP (mmHg): 88 METS: --- Stage: STAGE 3 Duration (min): 1 min : 1 sec Speed (mph): 3.4 Grade (%): 14 HR (bpm): 163 SBP (mmHg): 163 DBP (mmHg): 88 METS: --- Stage: RECOVERY Duration (min): 0 min : 58 sec Speed (mph): 0.0 Grade (%): 0 HR (bpm): 141 SBP (mmHg): 163 DBP (mmHg): 88 METS: --- Stage: RECOVERY Duration (min): 1 min : 58 sec Speed (mph): 0.0 Grade (%): 0 HR (bpm): 118 SBP (mmHg): 163 DBP (mmHg): 88 METS: --- Stage: RECOVERY Duration (min): 2 min : 58 sec Speed (mph): 0.0 Grade (%): 0 HR (bpm): 112 SBP (mmHg): 181 DBP (mmHg): 85 METS: --- Stage: RECOVERY Duration (min): 3 min : 58 sec Speed (mph): 0.0 Grade (%): 0 HR (bpm): 103 SBP (mmHg): 181 DBP (mmHg): 85 METS: --- Stage: RECOVERY Duration (min): 4 min : 38 sec Speed (mph): 0.0 Grade (%): 0 HR (bpm): 98 SBP (mmHg): 173 DBP (mmHg): 82 METS: --- Rest HR: 85 bpm Peak HR: 164 bpm Rest Sys BP: 149 mmHg Peak Sys BP: 181 mmHg Max Pred HR: 183 bpm % Max Pred HR: 90 % Target HR: 156 bpm Max RPP: 29,684 bpm*mmHg Jaime Score: -3 Termination Reason: Reached target heart rate or workload Cardiac Symptoms: Shortness of breath Max ST Seg Deviation: -2.00 mm Total Time: 7 min : 1 sec Rest Waters BP: 89 mmHg Peak Waters BP: 85 mmHg Angina Score: None Total METS: 8.9 Resting ECG Sinus rhythm. Stress ECG No ST changes. Arrhythmias None. Report Signatures
--- NOTE | 2025-07-07 08:58 | ECHO_ITS ---
Patient Info Name: Chao Gomez Age: 39 years : 1985 Gender: Male Ht: 74 in Wt: 230 lbs BSA: 2.35 m2 HR: 72 bpm BP: 154 / 92 mmHg Technical Quality: Good Exam Date: 07/07/2025 9:08 AM Patient Status: O Admit Date: 07/07/2025 Exam Type: CA echo doppler color flow Complete two-dimensional, color flow and Doppler transthoracic echocardiogram is performed. Change Management Facilitator: Mateo Araujo III Attending Provider: Oscar Hartmann DO Summary 1. Complete two-dimensional, color flow and Doppler transthoracic echocardiogram is performed. 2. Left ventricular chamber dimension is normal. 3. Left ventricular systolic function is normal, estimated at 60-65. 4. The left ventricular diastolic function is normal. 5. E/e' 8 is minimally elevated. 6. There is trace tricuspid valve regurgitation. 7. No pulmonary hypertension, estimated pulmonary arterial systolic pressure is 27 mmHg. Left Ventricle E/e' 8 is minimally elevated. Left ventricular chamber dimension is normal. Left ventricular systolic function is normal, estimated at 60-65. The left ventricular diastolic function is normal. Right Ventricle Right ventricular chamber dimension is normal. Right ventricular systolic function is normal and with normal TAPSE 2.7 cm. Left Atria Left atrial chamber dimension is normal. Right Atria Right atrial chamber dimension is normal. Aortic Valve The aortic valve is trileaflet. There is no aortic valve stenosis. There is no aortic valve regurgitation. Pulmonic Valve There is no pulmonic regurgitation. Mitral Valve There is no mitral valve stenosis. There is no mitral valve regurgitation. Tricuspid Valve There is trace tricuspid valve regurgitation. No pulmonary hypertension, estimated pulmonary arterial systolic pressure is 27 mmHg. Pericardium/Pleural There is no pericardial effusion. Inferior Vena Cava Normal inferior vena cava with >50% collapse upon inspiration consistent with normal right atrial pressure, 5 mmHg. Aorta The aortic root size at the sinus of Valsalva is normal. Left Ventricular Outflow Tract Name Value Normal LVOT 2D LVOT Diameter 2.4 cm LVOT Doppler LVOT Peak Velocity 134 cm/s LVOT Peak Gradient 7 mmHg LVOT Mean Gradient 4 mmHg LVOT VTI 25 cm LVOT VTI/AV VTI Ratio 0.9 LVOT Stroke Volume 112 ml LVOT CO 8.1 l/min LVOT CI 3.5 l/min/m2 Pulmonic Valve Name Value Normal PV Doppler PV Peak Velocity 125 cm/s PV Peak Gradient 6 mmHg PV Mean Gradient 3 mmHg Mitral Valve Name Value Normal MV Doppler MV Peak Gradient 6 mmHg MV Mean Gradient 3 mmHg MV Area (Cont Eq VTI) 3.3 cm2 MV Diastolic Function MV E Peak Velocity 110 cm/s MV A Peak Velocity 96 cm/s MV E/A 1.2 MV Decel Time (PW) 176 ms MV Annular TDI MV E/e' (Septal) 9.3 MV E/e' (Lateral) 7.0 MV E/e' (Average) 8.2 Tricuspid Valve Name Value Normal TV Regurgitation Doppler TR Peak Velocity 235 cm/s TR Peak Gradient 22 mmHg Estimated PAP/RSVP RA Pressure 5 mmHg <=5 PA Systolic Pressure 27 mmHg <36 RV Systolic Pressure 27 mmHg <36 TV Annular TDI TV Lateral Janice s' Velocity 15.3 cm/s >=9.5 Aortic Valve Name Value Normal AV Doppler AV Peak Velocity 154 cm/s AV Peak Gradient 9 mmHg AV Mean Gradient 5 mmHg AV VTI 27 cm AV Area (Cont Eq VTI) 4.2 cm2 >=3.0 AV Area (Cont Eq Lalo) 4.0 cm2 AV DI (Lalo) 0.87 AV Regurgitation 2D LVOT Area 4.6 cm2 Ventricles Name Value Normal LV Dimensions 2D/MM IVS Diastolic Thickness (2D) 0.7 cm 0.6-1.0 LVID Diastole (2D) 5.1 cm 4.2-5.8 LVIW Diastolic Thickness (2D) 0.9 cm 0.6-1.0 LVID Systole (2D) 3.7 cm 2.5-4.0 LVOT Diameter 2.4 cm LV Mass (2D Cubed) 143.00 g 88.00-224.00 LV Mass Index (2D Cubed) 61 g/m2 49-115 Relative Wall Thickness (2D) 0.36 <=0.42 LV Fractional Shortening/Ejection Fraction 2D/MM LV Fractional Shortening (2D) 27 % 25-43 LV EF (2D Teichholz) 53 % LV Diastolic Volume (4C MOD) 157 ml LV EF (4C MOD) 51 % LV Diastolic Volume (2C MOD) 117 ml LV EF (2C MOD) 58 % LV Diastolic Volume (BP MOD) 134 ml 62-150 LV Diastolic Volume Index (BP MOD) 57 ml/m2 34-74 LV Systolic Volume (BP MOD) 62 ml 21-61 LV Systolic Volume Index (BP MOD) 26 ml/m2 11-31 LV EF (BP MOD) 54 % 52-72 LV Diastolic Length (4C) 11.2 cm LV Systolic Length (4C) 8.7 cm LV Stroke Volume (4C MOD) 79 ml Atria Name Value Normal LA Dimensions LA Volume (4C A-L) 65 ml LA Volume (BP A-L) 67 ml RA Dimensions RA Systolic Major Thornton Length (4C) 6.5 cm 2.1-2.7 RA Area (4C) 19.9 cm2 <=18.0 Report Signatures
--- OUTSIDE RECORDS SUMMARY | 2025-07-07 09:06 | XMS_ITS | Clinical Summary ---
Author Organization [facility] Address Formerly [facility] [place] [address] Care Team Providers Care Medication Reconciliation Technician Name Role Phone Pato Husain MD Primary Care Provider [phone] Allergies No known active allergies Medications lisinopril 40 MG tablet 05/07/2020 Active venlafaxine XR 37.5 MG 24 hr capsule 11/27/2019 Active fenofibrate 160 MG tablet 02/12/2020 Active famotidine 40 MG tablet 05/06/2020 Active Encounters Date Type Department Care Team Description 04/28/2025 2:58 PM CDT - 04/28/2025 5:13 PM CDT Emergency [facility] [place] [address] Eliu Fisher PA-C Eye Problem Discharge Disposition: Home or Self Care (Routine Discharge) 04/28/2025 Travel from Last 3 Months Family History Medical History Relation Comments Heart Disease Father Cancer Mother Relation Status Comments Father Mother Social History Tobacco Use Types Packs/Day Years Used Date Smoking Tobacco: Never Smokeless Tobacco: Never Alcohol Use Standard Drinks/Week Comments Not Currently 0 (1 standard drink = 0.6 oz pur e alcohol) Sex and Gender Information Value Date Recorded Sex Assigned at Male 04/28/2025 2:52 PM CDT Legal Sex Male 2:42 PM CDT Gender Identity Not on file Sexual Orientation Not on file Last Filed Vital Signs Vital Sign Reading Time Taken Comments Blood Pressure 156/99 04/28/2025 4:55 PM CDT Pulse 67 04/28/2025 4:55 PM CDT Temperature 36.5 C (97.7 F) 04/28/2025 2:26 PM CDT Respiratory Rate 18 04/28/2025 4:55 PM CDT Oxygen Saturation 100% 04/28/2025 4:55 PM CDT Inhaled Oxygen Concentration - - Weight 120.2 kg (265 lb) 04/28/2025 2:26 PM CDT Height 188 cm (6' 2) 04/28/2025 2:26 PM CDT Body Mass Index 34.02 04/28/2025 2:26 PM CDT Plan of Treatment Health Maintenance Due Date Last Done Comments Annual Physical 1990 Hepatitis C 2005 Hepatitis B Vaccines (1 of 3 - 19+ 3-dose series) 2006 HPV Vaccines (1 - 3-dose SCD M series) 2014 COVID-19 Vaccine (2024-2 6 season) 2025 07/29/2021, 10/02/2020, 09/16/2020 Influenza Adult (#1) 2025 07/29/2021, 07/22/2020 DTaP, Tdap and Td Vaccines ( 2 - Td or Tdap) 07/29/2031 07/29/2021 Pneumococcal Vaccine: Pediatrics (0 to 5 Years) and At-Risk Patients (6 to 49 Years) Aged Out 11/29/2015 No longer eligible b ased on patient's age to complete this topic Hepatitis A Vaccines Aged Out No long er eligible based [...] on patient's age to complete this topic Procedures Procedure Name Priority Date/Time Associated Diagnosis Comments CT ORBITS WO CON STAT 04/28/2025 2:55 PM CDT COMPREHENSIVE METABOLIC PANEL STAT 04/28/2025 2:47 PM CDT CBC W/DIFF AUTOMATED STAT 04/28/2025 2:47 PM CDT from Last 3 Months Results * CT ORBITS WO CON (04/28/2025 2:55 PM CDT) Anatomical Region Laterality Modality Orbits Computed Tomogra phy 04/28/2025 3:17 PM CDT Impressions 04/28/2025 3:24 PM CDT IMPRESSION: No acute findings. Referred By: Interpreted By: Yusef Salazar MD, 04/28/2025 3:17 PM Narrative 04/28/2025 3:24 PM CDT [place] [id number] Examination: CT ORBITS WO CON Clinical history: Left eye pain Comparison: None DATE/TIME: 04/28/2025 2:52 PM Technique: Multiplanar CT images of the orbits were obtained without IV contrast. Oral contrast: None. A dose lowering technique was used for this procedure, which may include, but is not limited to, dose reduction technique, automated exposure control, the use of iterative reconstruction, and ALARA (As Low As Reasonably Achievable) / Image Gently techniques. Findings: No acute facial bone fracture. No orbital mass or hematoma. No fluid collection. Globes appear intact. Sinuses are clear. There is rightward deviation of the osseous septum with septal spur formation. There is asymmetry of the anterior glenoid processes, the left widening of the right. This is nonspecific though may be developmental. Procedure Note Yusef Salazar MD - 04/28/[address] [address] Examination: CT ORBITS WO CON Clinical history: Left eye pain Comparison: None DATE/TIME: 04/28/2025 2:52 PM Technique: Multiplanar CT images of the orbits were obtained without IVcontrast. Oral contrast: None. A dose lowering technique was used forthis procedure, which may include, but is not limited to, dose reductiontechnique, automated exposure control, the use of iterativereconstruction, and ALARA (As Low As Reasonably Achievable) / Image Gentlytechniques. Findings: No acute facial bone fracture. No orbital mass or hematoma. Nofluid collection. Globes appear intact. Sinuses are clear. There isrightward deviation of the osseous septum with septal spur formation.There is asymmetry of the anterior glenoid processes, the left widening ofthe right. This is nonspecific though may be developmental. IMPRESSION: No acute findings. Referred By: Interpreted By: Yusef Salazar MD, 04/28/2025 3:17 PM us Eliu Fisher PA-C CT Final Resul t * (ABNORMAL) COMPREHENSIVE METABOLIC PANEL (04/28/2025 2:47 PM CDT) GLUCOSE 95 70 - 99 MG/DL 04/28/2025 3:[address] [facility] BUN 9 7 - 18 MG/DL 04/28/2025 3:[address] [facility] CREATININE S/P/B 0.83 0.7 - 1.3 MG/DL 04/28/2025 3:[address] [facility] SODIUM S/P/B 140 136 - 145 MMOL/L 04/28/2025 3:[address] [facility] POTASSIUM S/P/B 3.5 3.5 - 5.1 MMOL/L 04/28/2025 3:[address] [facility] CHLORIDE S/P/B 109 97 - 115 MMOL/L 04/28/2025 3:[address] [facility] CO2 27.7 21 - 32 MMOL/L 04/28/2025 3:[address] [facility] CALCIUM S/P/B 9.7 8.5 - 10.1 MG/DL 04/28/2025 3:[address] [facility] BILIRUBIN TOTAL S/P/B 0.7 0.2 - 1.2 MG/DL 04/28/2025 3:[address] [facility] Comment: THIS ASSAY IS NOT RECOMMENDED FOR PATIENTS UNDERGOING TREATMENT WITH ELTROMBOPAG DUE TO THE POTENTIAL FOR FALSELY ELEVATED RESULTS. TOTAL PROTEIN S/P/B 7.8 6.4 - 8.2 G/DL 04/28/2025 3:[address] [facility] ALBUMIN S/P/B 4.1 3.4 - 5.0 G/DL 04/28/2025 3:[address] [facility] AST 12(L) 15 - 37 U/L 04/28/2025 3:[address] [facility] ALT 31 16 - 60 U/L 04/28/2025 3:[address] [facility] ALKALINE PHOSPHATASE S/P/B 87 50 - 136 U/L 04/28/2025 3:[address] [facility] ANION GAP 3.3 2 - 10 MMOL/L 04/28/2025 3:[address] [facility] BUN CREATININE RATIO 10.8 6 - 26 04/28/2025 3:[address] [facility] A/G RATIO 1.1 1.0 - 2.0 RATIO 04/28/2025 3:[address] [facility] GFR ESTIMATE >90 >90 ML/MIN/1.7 3 M2 04/28/2025 3:[address] [facility] Comment: NOTE: eGFR is not calculated for patients <18 years of age or gender unknown. This is an estimated GFR calculation using the new CKD EPI creatinine equation without race and so does not require a correction factor for race. This estimated GFR should not be used for calculating drug doses. 04/28/2025 2:47 PM CDT us Eliu Fisher PA-C LABORATORY Final Resul t [facility] [address] [place] [address], * (ABNORMAL) CBC W/DIFF AUTOMATED (04/28/2025 2:47 PM CDT) Pathologist [facility] WBC 5.97 4.5 - 11.0 x10'3/uL 04/28/2025 4:[address] [facility] RBC 5.09 4.70 - 6.10 x10'6/uL 04/28/2025 4:[address] [facility] HGB 14.7 14.0 - 18.0 G/DL 04/28/2025 4:[address] [facility] HCT 42.5(L) 43.0 - 54.0 % 04/28/2025 4:[address] [facility] MCV 83.5 80.0 - 94.0 FL 04/28/2025 4:[address] [facility] MCH 28.9 27.0 - 31.0 PG 04/28/2025 4:[address] [facility] MCHC 34.6 32.0 - 36.0 G/DL 04/28/2025 4:[address] [facility] RDW 12.2 11.5 - 14.5 % 04/28/2025 4:[address] [facility] PLT 222 130 - 400 x10'3/uL 04/28/2025 4:[address] [facility] MPV 9.2(L) 9.3 - 12.2 FL 04/28/2025 4:[address] [facility] DIFFERENTIAL TYPE AUTOMATED DIFFERENTIAL 04/28/2025 4:[address] [facility] NEUTROPHILS % 66.9 % 04/28/2025 4:[address] [facility] LYMPHOCYTES % 22.8 % 04/28/2025 4:[address] [facility] MONOCYTES % 6.0 % 04/28/2025 4:[address] [facility] EOSINOPHILS 3.5 % 04/28/2025 4:[address] [facility] BASOPHILS 0.5 % 04/28/2025 4:[address] [facility] IMMATURE GRANS % 0.3 % 04/28/20 4:[address] [facility] ABS. NEUTROPHILS 3.99 1.80 - 7.70 x10'3/uL 04/28/2025 4:[address] [facility] ABS. LYMPHOCYTES 1.36 1.00 - 4.80 x10'3/uL 04/28/2025 4:[address] [facility] ABS. MONOCYTES 0.36 0.30 - 0.82 x10'3/uL 04/28/2025 4:[address] [facility] ABS. EOSINOPHILS 0.21 0.04 - 0.54 x10'3/uL 04/28/2025 4:[address] [facility] ABS. BASOPHILS 0.03 0.01 - 0.08 x10'3/uL 04/28/2025 4:[address] [facility] ABS. IMMATURE GRANULOCYTES 0.02 0.00 - 0.49 x10'3/uL 04/28/2025 4:[address] [facility] 04/28/2025 2:47 PM CDT us Eliu Fisher PA-C LABORATORY Final Resul t [facility] [address] [place] [address], from Last 3 Months Additional Health Concerns Infection Onset Date Last Indicated C. difficile 04/20/2017 04/20/2017 Insurance [facility] Care Teams Medication Reconciliation Technician Relationship Specialty Start Date End Date Pato Husain MD [address] [place] [id number] PCP - General FAMILY PRACTICE 09/09/24
--- OUTSIDE RECORDS SUMMARY | 2025-07-07 09:06 | XMS_ITS | Clinical Summary ---
Author Organization [facility] Address [address] [place] [address] Care Team Providers Care It Training Specialist Name Role Phone Pato Husain MD Primary Care Provider [phone] [facility],non-owned Affiliates and Associated Physician Practices is amultiple site organization consisting of ambulatory clinics and hospital sitesin [place], [place], [place] and [place]. This disclosure is being madepursuant to the Care Everywhere program and may not contain all information available regarding this patient. Last updated 18.[facility] Allergies Active Allergy Reactions Criticality Noted Date [...] on file Legal Sex Male 9:23 PM [employer] Gender Identity Not on file Sexual Orientation [...] 12:28 AM CDT Height 188 cm (6' 2) 04/04/2024 12:28 AM CDT Body Mass Index 35.95 04/04/2024 12:28 AM CDT Plan of Treatment Health Maintenance Due Date Last Done Comments HIV SCREENING 2002 HEPATITIS C SCREENING 08/06/2005 DTAP/TDAP/TD VACCINES (1 - Tdap) 2006 HEPATITIS B VACCINE (1 of 3 - 19+ 3-dose series) 2006 HPV VACCINE (1 - 3-dose SCDM series) 2014 DEPRESSION SCREENING 09/11/2024 COVID-19 VACCINE (1 - 2023-2 5 season) 2025 INFLUENZA VACCINE (#1) 2025 ZOSTER VACCINE (1 of 2) 2037 [...] patient's age to complete this topic Insurance [facility] Care Teams It Training Specialist Relationship Specialty Start Date End Date Pato Husain MD [facility] [place] [phone] PCP - General Family Medicine 05/29/24
--- OUTSIDE RECORDS SUMMARY | 2025-07-07 09:06 | XMS_ITS | Clinical Summary ---
Author Organization [facility] Address [address] [place] [address] Care Team Providers Care [place] [employer] Instructor Name Role Phone Pato Husain MD Primary Care Provider [phone] Pato Husain MD Unavailable [phone] Domo Smith MD Unavailable [phone] Sidney Alexandre MD Unavailable [phone] Allergies Active Allergy Reactions Criticality Noted Date Comments Cat Dander Other (See comments) Low 03/07/2018 Cat Hair Standardized Allerg enic Extract Other (See comments) Low 03/07/2018 Medications nortriptyline (PAMELOR) 25 mg capsule Take 1 capsule (25 mg total) by mouth nightly 30 capsule 4 5 11/17/19 26 Active semaglutide (OZEMPIC) 0.25 mg or 0.5 mg (2 mg/3 mL) pen injector injection 5 Active vitamin E 1,000 unit capsule Take 1 capsule (1,000 Units total) by mouth daily Active vitamin b complex tablet Take 1 tablet by mouth daily Active magnesium gluconate 200 mg tabletIndications :hypomagnesemia 1 tablet (200 mg total) Active cholecalciferol 25 mcg (1,000 unit) tablet Take 1 tablet (1,000 Units total) by mouth daily Active erenumab-aooe 140 mg/mL auto-injector Inject 1 mL (140 mg total) under the skin every 30 (thirty) days 1 mL 5 5 Active Aimovig Autoinjector 140 mg/mL auto-injector INJECT 140 MG UNDER THE SKIN EVERY MONTH IN THE ABDOMEN THIGH OR OUTER AREA OF UPPER ARM 06/18/20 25 Discontinu ed(Felipe albert order) Active Problems Problem Noted Date Diagnosed Date Tinnitus of both ears 06/16/2025 Left facial pressure and pain 06/16/2025 Overview (06/16/2025): under and around left eye Allergic conjunctivitis of both eyes 03/06/2025 Assessment & Plan (03/17/2025 10:41 AM CDT): -subjectively no improvement after 10 day course of lotemax -appears quiet today; mild injection from last visit completely resolved -discussed normal conjunctival vasculature however vessels do not appear abnormal or injected today -does sleep with CPAP and ceiling fan, may be having some exposure component -d/c lotemax -start Refresh PM filippo qhs OU and PFATs qid OU -follow if no improvement Assessment & Plan (03/06/2025 2:05 PM CDT): -early return for redness and itching OU x 1 month +s/s c/w allergic conjunctivitis; does not appear infectious or inflammatory in nature, less likely 2/2 medication use -discussed low-strength steroid drop vs OTC allergy drop; pt elects steroid -start lotemax gtts qid OU x 10 days; discussed senior living side effects of topical steroid use including IOP spike -RTC if symptoms worsen or persist Subjective vision disturbance, bilateral 025 Assessment & [...] pneumothorax 08/21/2024 Optic disc drusen, 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 Zamora Concussion with loss of consciousness of 30 jeferson nacho or less 08/19/2024 Diverticulitis 08/19/2024 Aspiration pneumonia due to gastric secretions 0 11/23/2022 BMI 35.0-35.9,adult 11/23/2022 Large tonsils 11/23/2022 Pneumothorax on left 09/29/2022 Recurrent pneumothorax 09/28/2022 Bulla of lung 09/20/2022 Nonsmoker 09/20/2022 Traumatic pneumothorax 08/23/2022 Head trauma 08/23/2022 Vertigo 08/23/2022 Primary hypertension 08/23/2022 Shortness of breath 08/22/2022 Acute pain of left shoulder 12/22/2021 Primary osteoarthritis of left shoulder 07/27/20 21 Obstructive sleep apnea 03/21/2018 Chest pain 03/07/2018 Palpitations 03/07/2018 Encounters Date Type Department Care Team Description 06/30/2025 Telephone [facility] [address] [place] [address] Amirah Marcos, PROOF CLERK Test Results (Allergy testing) 06/20/2025 4:40 PM CDT Lab [facility] Lab [address] [place] [address] Non-seasonal allergic rhinitis, unspecified trigger 06/20/2025 9:45 AM CDT Imaging Exam [facility] Medicine Ophthalmology [address] [phone] 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) 06/20/2025 8:45 AM CDT Office Visit [facility] Medicine Ophthalmology [address] [address] Yusef Zamora MD Unspecified disorder of visual pathways (Primary Dx); Optic disc drusen, right; 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 06/20/2025 8:20 AM CDT Imaging Exam [facility] Medicine Ophthalmology [address] [address] Unspecified disorder of visual pathways 06/18/2025 2:47 PM CDT - 06/18/2025 11:59 PM CDT Hospital Encounter [facility] Respiratory Therapy [address] [place] [address] Obstructive sleep apnea; Bulla of lung (HCC); Nonsmoker; History of pneumothorax; Shortness of breath Discharge Disposition: Discharge to home or self care 06/18/2025 Telephone [facility] General Neurology [address] [place] [address] [place] [address] [place] [address] Maggie Echevarria RN 06/16/2025 9:00 AM CDT Office Visit [facility] [address] [place] [phone] Amirah Marcos NP Non-seasonal allergic rhinitis, unspecified trigger (Primary Dx); Left facial pressure and pain; Tinnitus of both ears 06/16/2025 8:30 AM CDT Procedure visit [facility] [address] [place] [phone] Radha Basilio Tinnitus of both ears (Primary Dx) 06/11/2025 4:48 PM CDT - 06/11/2025 11:59 PM CDT Hospital Encounter [facility] CT [address] [place] [address] Obstructive sleep apnea; Bulla of lung (HCC); Nonsmoker; History of pneumothorax; Shortness of breath Discharge Disposition: Discharge to home or self care 06/10/2025 Telephone [facility] [address] [place] [address] Yadi Marie, [facility] Sleep Study Results/CPAP order 06/05/2025 2:27 PM CDT - 06/05/2025 11:59 PM CDT Hospital Encounter [facility] [address] [place] [address] Obstructive sleep apnea; Bulla of lung (HCC); Nonsmoker; History of pneumothorax; Shortness of breath Discharge Disposition: Discharge to home or self care 05/26/2025 Telephone [facility] General Neurology [address] [place] [address] [place] [address] Maggie Echevarria RN 05/21/2025 2:30 PM CDT Office Visit [facility] [place] [address] [facility] [address] [place] [phone] Sidney Alexandre MD Obstructive sleep apnea (Primary Dx); Bulla of lung (HCC); Nonsmoker; History of pneumothorax; Shortness of breath 05/21/2025 Telephone [facility] General Neurology [address] [place] [address] [place] [address] Maggie Echevarria RN 05/20/2025 4:00 PM CDT Telemedicine [facility] General Neurology [address] [place] [address] [place] [address] Solo Garcia Jr., MD Chronic intractable headache, unspecified headache type (Primary Dx) 05/12/2025 12:26 PM CDT - 05/12/2025 3:08 PM CDT Emergency [facility] Emergency Department [address] [place] [address] Tiki Vallejo MD Dyspnea, unspecified type (Primary Dx); Dyspnea on exertion; Chronic nonintractable headache, unspecified headache type Discharge Disposition: Discharge to home or self care from Last 3 Months Surgical History Surgery Date Site/Laterality Comments COLECTOMY PLEURAL SCARIFICATION Medical History Medical History Date Comments PIPPA (obstructive sleep apnea) Diverticulitis Pneumothorax HTN (hypertension) NAION (non-arteritic anterior ischemic optic abbi ropathy) Stroke (HCC) Tinnitus Headache Allergies Family History Medical History Relation Name Comments Heart attack Father Atrial fibrillation Mother Cancer Mother Migraines Sister Relation Name Status Comments Father Mother Sister Social History Tobacco Use Types Packs/Day Years Used Date Smoking Tobacco: Never Smokeless Tobacco: Never Alcohol Use Standard Drinks/Week Comments Yes 0 (1 standard drink = 0.6 oz pur e alcohol) Social Connection and Isolation Panel Answer Date Recorded In a typical week, how many times do you talk on the phone with family, friends, or neighbors? Three times a week 08/23/2022 How often do you get togethe r with friends or relatives? Three times a week 08/23/2022 How often do you attend chur ch or mormon services? Never 08/23/2022 Do you belong to any clubs o r organizations such as yarsani groups, unions, fraternal or athletic groups, or [...] making you feel afraid or unsafe? Denies 05/12/2025 Sex and Gender Information Value Date Recorded Sex Assigned at Not on file Legal Sex Male 3:04 PM CDT Gender Identity Not on file Sexual Orientation Not on file Obstetrics History Last Filed Vital Signs Vital Sign Reading Time Taken Comments Blood Pressure 120/70 05/21/2025 2:14 PM CDT Pulse 89 05/21/2025 2:14 PM CDT Temperature 36.8 C (98.2 F) 05/21/2025 2:14 PM CDT Respiratory Rate 17 06/16/2025 8:55 AM CDT Oxygen Saturation 98% 05/21/2025 2:14 PM CDT Inhaled Oxygen Concentration - - Weight 103.4 kg (228 lb) 06/16/2025 8:55 AM CDT Height 188 cm (6' 2) 06/16/2025 8:55 AM CDT Body Mass Index 29.27 06/16/2025 8:55 AM CDT Plan of Treatment Upcoming Encounters Date Type Department Care Team (Late st Contact Info) Description 07/17/2025 3:15 PM [employer] MECHANIC Hospital Encounter [address] [address] Health Maintenance Due Date Last Done Comments Depression Screening 1987 Hepatitis C Screening 1987 DTaP/Tdap/Td Vaccine (1 - Tdap) 1998 Varicella Vaccines (1 of 2 - 13+ 2-dose series) 2000 Hepatitis B Screening 2005 Regular Well Visit/Exam 18-64 2005 HPV Vaccines (1 - 3-dose SCDM series) 2014 Pneumococcal vaccine <65 (2 of 2 - PCV) 11/28/2016 0 11/29/2015 Covid-19 Vaccine ( season) 2025, 09/16/2020 Influenza Vaccine (#1) 2025 Procedures Procedure Name Priority Date/Time Associated Diagnosis Comments ALLERGEN BIRCH COMMON SILVER (TREE) IGE Routine 06/20/2025 4:57 PM CDT Non-seasonal allergic rhinitis, unspecified trigger ALLERGEN ELM (TREE) IGE Routine 06/20/20 4:57 PM CDT Non-seasonal allergic rhinitis, unspecified trigger ALLERGEN MAPLE/BOX ELDER (TREE) IGE Routine 06/20/2025 4:57 PM CDT Non-seasonal allergic rhinitis, unspecified trigger ALLERGEN MOUNTAIN JUNIPER (TREE) IGE Routine 06/20/2025 4:57 PM CDT Non-seasonal allergic rhinitis, unspecified trigger ALLERGEN MULBERRY (TREE) IGE Routine 06/20/2025 4:57 PM CDT Non-seasonal allergic rhinitis, unspecified trigger ALLERGEN OAK RED (TREE) IGE Routine 06/20/2025 4:57 PM CDT Non-seasonal allergic rhinitis, unspecified trigger ALLERGEN SYCAMORE UGANDAN (TREE) IGE Routine 06/20/2025 4:57 PM CDT Non-seasonal allergic rhinitis, unspecified trigger ALLERGEN WALNUT (TREE) IGE Routine 06/20/2025 4:57 PM CDT Non-seasonal allergic rhinitis, unspecified trigger ALLERGEN BERMUDA GRASS (GRASS) IGE Routine 06/20/2025 4:57 PM CDT Non-seasonal allergic rhinitis, unspecified trigger ALLERGEN JASON GRASS (GRASS) IGE Routine 06/20/2025 4:57 PM CDT Non-seasonal allergic rhinitis, unspecified trigger ALLERGEN JESSEE GRASS (GRASS) IGE Routine 06/20/2025 4:57 PM CDT Non-seasonal allergic rhinitis, unspecified trigger ALLERGEN PLANTAIN KUWAITI (WEED) IGE Routine 06/20/2025 4:57 PM CDT Non-seasonal allergic rhinitis, unspecified trigger ALLERGEN ACEVEDO'S QUARTER (WEED) IGE Routine 06/20/2025 4:57 PM CDT Non-seasonal allergic rhinitis, unspecified trigger ALLERGEN PIGWEED ROUGH (WEED) IGE Routine 06/20/2025 4:57 PM CDT Non-seasonal allergic rhinitis, unspecified trigger ALLERGEN RAGWEED SHORT/COMMON (WEED) IGE Routine 06/20/2025 4:57 PM CDT Non-seasonal allergic rhinitis, unspecified trigger ALLERGEN NETTLE (WEED) IGE Routine 06/20/2025 4:57 PM CDT Non-seasonal allergic rhinitis, unspecified trigger ALLERGEN ALTERNARIA TENUIS (MOLD) IGE Routine 06/20/2025 4:57 PM CDT Non-seasonal allergic rhinitis, unspecified trigger ALLERGEN ASPERGILLUS FUMIGATUS (MOLD) IGE Routine 06/20/2025 4:57 PM CDT Non-seasonal allergic rhinitis, unspecified trigger ALLERGEN CLADOSPORIUM HERBARUM (MOLD) IGE Routine 06/20/2025 4:57 PM CDT Non-seasonal allergic rhinitis, unspecified trigger ALLERGEN PENICILLIUM CHRYSOGENUM (MOLD) IGE Routine 06/20/2025 4:57 PM CDT Non-seasonal allergic rhinitis, unspecified trigger ALLERGEN EPITHELIA/DANDER CAT (ANIMAL) IGE Routine 06/20/2025 4:57 PM CDT Non-seasonal allergic rhinitis, unspecified trigger ALLERGEN COCKROACH UGANDAN (INSECT) IGE Routine 06/20/2025 4:57 PM CDT Non-seasonal allergic rhinitis, unspecified trigger ALLERGEN DERMATOPHAGOIDES FARINAE (INSECT) IGE Routine 06/20/2025 4:57 PM CDT Non-seasonal allergic rhinitis, unspecified trigger ALLERGEN DERMATOPHAGOIDES PTERONYSSINUS (INSECT) IGE Routine 06/20/2025 4:57 PM CDT Non-seasonal allergic rhinitis, unspecified trigger ALLERGEN EPITHELIA/DANDER DOG (ANIMAL) IGE Routine 06/20/2025 4:57 PM CDT Non-seasonal allergic rhinitis, unspecified trigger ALLERGEN MOUSE MIX (ANIMAL) IGE Routine 06/20/2025 4:57 PM CDT Non-seasonal allergic rhinitis, unspecified trigger ALLERGEN RAT MIX (ANIMAL) IGE Routine 06/20/2025 4:57 PM CDT Non-seasonal allergic rhinitis, unspecified trigger B-SCAN ULTRASOUND 38717 - OU - BOTH EYES Routine 06/20/2025 12:19 PM CDT Ischemic optic neuropathy of right eye OCT, RETINA - OU - BOTH EYES Routine 06/20/2025 8:22 AM CDT Unspecified disorder of visual pathways OCT, OPTIC NERVE - OU - BOTH EYES Routine 06/20/2025 8:21 AM CDT Unspecified disorder of visual pathways PULMONARY FUNCTION TEST (PFT) Routine 06/18/2025 3:31 PM CDT Obstructive sleep apnea Bulla of lung (HCC) Nonsmoker History of pneumothorax Shortness of breath CT CHEST WO CONTRAST Schedule Routine, Read Routine (OP Routine) 06/11/2025 4:52 PM CDT Obstructive sleep apnea Bulla of lung (HCC) Nonsmoker History of pneumothorax Shortness of breath PORTABLE/HOME SLEEP STUDY Routine 06/05/2025 2:27 PM CDT Obstructive sleep apnea Bulla of lung (HCC) Nonsmoker History of pneumothorax Shortness of breath INFLUENZA A/B, RSV, AND COVID-19 PCR STAT 05/12/2025 1:34 PM CDT TROPONIN T HIGH-SENSITIVITY 2-HOUR Timed 05/12/2025 1:32 PM CDT D-DIMER, QUANTITATIVE STAT 05/12/2025 12:51 PM CDT XR CHEST PA LATERAL 2 VIEWS ED 05/12/2025 11:54 AM CDT THYROID FUNCTION CASCADE STAT 05/12/2025 11:46 AM CDT MAGNESIUM STAT 05/12/2025 11:46 AM CDT EGFR STAT 05/12/2025 11:46 AM CDT DIFFERENTIAL AUTO STAT 05/12/2025 11:46 AM CDT TROPONIN T HIGH-SENSITIVITY SERIES (BASELINE, 2HR, 4HR, 6HR) STAT 05/12/2025 11:46 AM CDT CBC WITH AUTO DIFFERENTIAL STAT 05/12/2025 11:46 AM CDT COMPREHENSIVE METABOLIC PANEL STAT 05/12/2025 11:46 AM CDT ECG 12-LEAD STAT 05/12/2025 11:41 AM CDT from Last 3 Months Results * Allergen Rat mix (animal) IgE (06/20/2025 4:57 PM CDT) [facility] Rat mix IgE <0.10 0.00 - 0.34 kUnits/L Comment:Testing performed by : [facility], [address] [facility] [place]., [address] Blood 06/20/2025 4:57 PM CDT 06/20/2025 7:26 PM CDT Narrative TORST[facility] - 06/26/2025 9:31 PM CDT TO BE DRAWN @ [facility] us Amirah Marcos PROOF CLERK LAB BLOOD ORDERABLES Final Res ult [facility] [address] [facility] Department [place] [address] * Allergen Mouse mix (animal) IgE (06/20/2025 4:57 PM CDT) Mouse mix IgE <0.10 0.00 - 0.34 kUnits/L Comment:Testing performed by : [facility], [address] [place] [address], [id number] Blood 06/20/2025 4:57 PM CDT 06/20/2025 7:26 PM CDT Narrative [facility] 06/26/2025 9:31 PM CDT TO BE DRAWN @ [facility] Amirah Marcos PROOF CLERK LAB BLOOD ORDERABLES Final Res ult Performing Organization Address [facility] de Phone Number [address] [place] [address] * Allergen Penicillium chrysogenum (mold) IgE (06/20/2025 4:57 PM CDT) [facility] Penicillium chrysogenum IgE <0.10 0.00 - 0.34 kUnits/L Comment:Testing performed by : [facility], [address] [place] [address], [id number] Blood 06/20/2025 4:57 PM CDT 06/20/2025 7:26 PM CDT Narrative [facility] 06/26/2025 9:31 PM CDT TO BE DRAWN @ [facility] Amirah Marcos PROOF CLERK LAB BLOOD ORDERABLES Final Res ult Performing Organization Address [facility] Co de Phone Number [address] [address] * (ABNORMAL) Allergen Lakeview (tree) IgE (06/20/2025 4:57 PM CDT) Lakeview IgE 1.03(H) 0.00 - 0.34 kUnits/L Comment:Testing performed by : [facility], [address] [place] [address]., [id number] Blood 06/20/2025 4:57 PM CDT 06/20/2025 7:26 PM CDT Narrative [facility] 06/26/2025 9:00 PM CDT TO BE DRAWN @ [facility] Amirah Marcos PROOF CLERK LAB BLOOD ORDERABLES Final Res ult [facility] [address] [address] * (ABNORMAL) Allergen Mountain juniper (tree) IgE (06/20/2025 4:57 PM CDT) Mountain juniper IgE 3.63(H) 0.00 - 0.34 kUnits/L Comment:Testing performed by : [facility], [address] [place] [address], [id number] Blood 06/20/2025 4:57 PM CDT 06/20/2025 7:26 PM CDT Narrative [facility] 06/26/2025 9:00 PM CDT TO BE DRAWN @ [facility] Result [facility] Amirah Marcos PROOF CLERK LAB BLOOD ORDERABLES Final Res ult Performing Organization Address [facility] Co de Phone Number [address] [address] * (ABNORMAL) Allergen Bermuda grass (grass) IgE (06/20/2025 4:57 PM CDT) Bermuda grass IgE 3.25(H) 0.00 - 0.34 kUnits/L Comment:Testing performed by : [facility], [address] [place] [address]., [id number] Blood 06/20/2025 4:57 PM CDT 06/20/2025 7:26 PM CDT Narrative [facility] 06/26/2025 8:41 PM CDT TO BE DRAWN @ [facility] Amirah Marcos PROOF CLERK LAB BLOOD ORDERABLES Final Res ult Performing Organization Address City/[facility]/ZIP Co de Phone Number [address] [address] * (ABNORMAL) Allergen Plantain german (weed) IgE (06/20/2025 4:57 PM CDT) Pathologist [facility] Plantain german IgE 1.33(H) 0.00 - 0.34 kUnits/L Comment:Testing performed by : [facility], [address] [place] [address], [id number] Blood 06/20/2025 4:57 PM CDT 06/20/2025 7:26 PM CDT Narrative [facility] 06/26/2025 9:00 PM CDT TO BE DRAWN @ [facility] Amirah Marcos PROOF CLERK LAB BLOOD ORDERABLES Final Res ult Performing Organization Address [facility] de Phone Number [address] [address] * (ABNORMAL) Allergen Elm (tree) IgE (06/20/2025 4:57 PM CDT) [facility] Elm IgE 3.67(H) 0.00 - 0.34 kUnits/L Comment:Testing performed by : [facility], [address] [place] [address], [id number] Blood 06/20/2025 4:57 PM CDT 06/20/2025 7:26 PM CDT Narrative [facility] 06/26/2025 9:00 PM CDT TO BE DRAWN @ [facility] Amirah Marcos PROOF CLERK LAB BLOOD ORDERABLES Final Res ult Performing Organization Address [facility] Co de Phone Number [address] [address] * Allergen Cladosporium herbarum (mold) IgE (06/20/2025 4:57 PM CDT) [facility] Cladosporium herbarum IgE <0.10 0.00 - 0.34 kUnits/L Comment:Testing performed by : [facility], [address] [place] [address], [id number] Blood 06/20/2025 4:57 PM CDT 06/20/2025 7:26 PM CDT Narrative [facility] 06/26/2025 8:59 PM CDT TO BE DRAWN @ [facility] Amirah Marcos PROOF CLERK LAB BLOOD ORDERABLES Final Res ult Performing Organization Address [facility] Co de Phone Number [address] [place] [address] * (ABNORMAL) Allergen Birch common silver (tree) IgE (06/20/2025 4:57 PM CDT) Birch common silver IgE 1.18(H) 0.00 - 0.34 kUnits/L Comment:Testing performed by : [facility], [address] [place] [address], [id number] Blood 06/20/2025 4:57 PM CDT 06/20/2025 7:26 PM CDT Narrative [facility] 06/26/2025 9:00 PM CDT TO BE DRAWN @ [facility] Amirah Marcos PROOF CLERK LAB BLOOD ORDERABLES Final Res ult Performing Organization Address [facility] de Phone Number [address] [address] * Allergen Alternaria tenuis (mold) IgE (06/20/2025 4:57 PM CDT) Alternaria tenius IgE <0.10 0.00 - 0.34 kUnits/L Comment:Testing performed by : [facility], [address] [place] [address]., [id number] Blood 06/20/2025 4:57 PM CDT 06/20/2025 7:26 PM CDT Narrative [facility] 06/26/2025 8:41 PM CDT TO BE DRAWN @ [facility] Amirah Marcos PROOF CLERK LAB BLOOD ORDERABLES Final Res ult Performing Organization Address City/[facility]/ZIP Co de Phone Number [address] [address] * Allergen Aspergillus fumigatus (mold) IgE (06/20/2025 4:57 PM CDT) Aspergillus fumigatus IgE 0.23 0.00 - 0.34 kUnits/L Comment:Testing performed by : [facility], [address] [place] [address], [id number] Blood 06/20/2025 4:57 PM CDT 06/20/2025 7:26 PM CDT Narrative [facility] 06/26/2025 8:41 PM CDT TO BE DRAWN @ [facility] Amirah Marcos PROOF CLERK LAB BLOOD ORDERABLES Final Res ult Performing Organization Address [facility] de Phone Number [address] [address] * (ABNORMAL) Allergen Dermatophagoides pteronyssinus (insect) IgE (06/20/2025 4:57 PM CDT) Dermatophyton pteronyssinus IgE 10.60(H) 0.00 - 0.34 kUnits/L Comment:Testing performed by : [facility], [address] [place] [address], [id number] Blood 06/20/2025 4:57 PM CDT 06/20/2025 7:26 PM CDT Narrative [facility] 06/26/2025 9:00 PM CDT TO BE DRAWN @ [facility] Amirah Marcos PROOF CLERK LAB BLOOD ORDERABLES Final Res ult Performing Organization Address City/[facility] Co de Phone Number [address] [address] * (ABNORMAL) Allergen Dermatophagoides farniae (insect) IgE (06/20/2025 4:57 PM CDT) Dermatophyton farinae IgE 17.70(H) 0.00 - 0.34 kUnits/L Comment:Testing performed by : [facility], [address] [place] [address], [id number] Blood 06/20/2025 4:57 PM CDT 06/20/2025 7:26 PM CDT Narrative [facility] 06/26/2025 9:00 PM CDT TO BE DRAWN @ [facility] Amirah Marcos PROOF CLERK LAB BLOOD ORDERABLES Final Res ult Performing Organization Address [facility] de Phone Number [address] [address] * (ABNORMAL) Allergen Epithelia/dander dog (animal) IgE (06/20/2025 4:57 PM CDT) Dog dander IgE 2.03(H) 0.00 - 0.34 kUnits/L Comment:Testing performed by : [facility], [address] [place] [address], [id number] Blood 06/20/2025 4:57 PM CDT 06/20/2025 7:26 PM CDT Narrative [facility] 06/26/2025 9:00 PM CDT TO BE DRAWN @ [facility] Amirah Marcos PROOF CLERK LAB BLOOD ORDERABLES Final Res ult Performing Organization Address City/[facility]/ZIP Co de Phone Number [address] [address] * (ABNORMAL) Allergen Cockroach beninese (insect) IgE (06/20/2025 4:57 PM CDT) Cockroach IgE 6.57(H) 0.00 - 0.34 kUnits/L Comment:Testing performed by : [facility], [address] [place] [address], [id number] Blood 06/20/2025 4:57 PM CDT 06/20/2025 7:26 PM CDT Narrative [facility] 06/26/2025 9:00 PM CDT TO BE DRAWN @ [facility] Amirah Marcos PROOF CLERK LAB BLOOD ORDERABLES Final Res ult Performing Organization Address [facility] Co de Phone Number [address] [address] * (ABNORMAL) Allergen Epithelia/dander cat (animal) IgE (06/20/2025 4:57 PM CDT) Cat dander IgE 19.60(H) 0.00 - 0.34 kUnits/L Comment:Testing performed by : [facility], [address] [place] [address], [id number] Blood 06/20/2025 4:57 PM CDT 06/20/2025 7:26 PM CDT Narrative [facility] 06/26/2025 8:59 PM CDT TO BE DRAWN @ [facility] Amirah Marcos PROOF CLERK LAB BLOOD ORDERABLES Final Res ult Performing Organization Address [facility] Co de Phone Number [address] [address] * (ABNORMAL) Allergen Ragweed short/common (weed) IgE (06/20/2025 4:57 PM CDT) Ragweed common IgE 10.10(H) 0.00 - 0.34 kUnits/L Comment:Testing performed by : [facility], [address] [place] [address]., [id number] Blood 06/20/2025 4:57 PM CDT 06/20/2025 7:26 PM CDT Narrative [facility] 06/26/2025 9:00 PM CDT TO BE DRAWN @ [facility] Amirah Marcos PROOF CLERK LAB BLOOD ORDERABLES Final Res ult Performing Organization Address City/[facility]/ZIP Co de Phone Number MILAD[address] [address] * (ABNORMAL) Allergen Pigweed, rough (weed) IgE (06/20/2025 4:57 PM CDT) Pigweed rough IgE 1.54(H) 0.00 - 0.34 kUnits/L Comment:Testing performed by : [facility], [address] [place] [address], [id number] Blood 06/20/2025 4:57 PM CDT 06/20/2025 7:26 PM CDT Narrative [facility] 06/26/2025 9:00 PM CDT TO BE DRAWN @ [facility] Amirah Marcos PROOF CLERK LAB BLOOD ORDERABLES Final Res ult Performing Organization Address [facility] Co de Phone Number [address] [address] * (ABNORMAL) Allergen Nettle (weed) IgE (06/20/2025 4:57 PM CDT) Nettle IgE 2.06(H) 0.00 - 0.34 kUnits/L Comment:Testing performed by : [facility], [address] [place] [address], [place]., [id number] Blood 06/20/2025 4:57 PM CDT 06/20/2025 7:26 PM CDT Narrative [facility] 06/30/2025 10:06 AM CDT TO BE DRAWN @ [facility] Amirah Marcos PROOF CLERK LAB BLOOD ORDERABLES Final Res ult Performing Organization Address City/[facility]/ZIP Co de Phone Number CERNER [address] [address] * (ABNORMAL) Allergen Acevedo's quarter (weed) IgE (06/20/2025 4:57 PM CDT) Pathologist [facility] Acevedo's quarters IgE 1.94(H) 0.00 - 0.34 kUnits/L Comment:Testing performed by : [facility], [address] [place] [address], [id number] Blood 06/20/2025 4:57 PM CDT 06/20/2025 7:26 PM CDT Narrative [facility] 06/26/2025 9:00 PM CDT TO BE DRAWN @ [facility] Amirah Marcos PROOF CLERK LAB BLOOD ORDERABLES Final Res ult Performing Organization Address [facility] de Phone Number [address] [address] * (ABNORMAL) Allergen Jessee grass (grass) IgE (06/20/2025 4:57 PM CDT) [facility] Jessee grass IgE 3.40(H) 0.00 - 0.34 kUnits/L Comment:Testing performed by : [facility], [address] [place] [address], [id number] Blood 06/20/2025 4:57 PM CDT 06/20/2025 7:26 PM CDT Narrative [facility] 06/26/2025 9:00 PM CDT TO BE DRAWN @ [facility] Amirah Marcos PROOF CLERK LAB BLOOD ORDERABLES Final Res ult Performing Organization Address City/[facility]/ZIP Co de Phone Number [address] [address] * (ABNORMAL) Allergen Jason grass (grass) IgE (06/20/2025 4:57 PM CDT) [facility] Jason grass IgE 3.43(H) 0.00 - 0.34 kUnits/L Comment:Testing performed by : [facility], [address] [place] [address], [id number] Blood 06/20/2025 4:57 PM CDT 06/20/2025 7:26 PM CDT Narrative [facility] 06/26/2025 9:00 PM CDT TO BE DRAWN @ [facility] Amirah Marcos PROOF CLERK LAB BLOOD ORDERABLES Final Res ult Performing Organization Address [facility] Co de Phone Number [address] [address] * (ABNORMAL) Allergen Ashley (tree) IgE (06/20/2025 4:57 PM CDT) Ashley (tree) IgE 1.79(H) 0.00 - 0.34 kUnits/L Comment:Testing performed by : [facility], [address] [place] [address], [id number] Blood 06/20/2025 4:57 PM CDT 06/20/2025 7:26 PM CDT Narrative [facility] 06/26/2025 9:31 PM CDT TO BE DRAWN @ [facility] Amirah Marcos PROOF CLERK LAB BLOOD ORDERABLES Final Res ult Performing Organization Address [facility] Co de Phone Number [address] [address] * (ABNORMAL) Allergen [place] beninese (tree) IgE (06/20/2025 4:57 PM CDT) [place] IgE 3.04(H) 0.00 - 0.34 kUnits/L Comment:Testing performed by : [facility], [address] [place] [address], [place]., [id number] Blood 06/20/2025 4:57 PM CDT 06/20/2025 7:26 PM CDT Narrative [facility] 06/26/2025 9:31 PM CDT TO BE DRAWN @ [facility] Amirah Marcos PROOF CLERK LAB BLOOD ORDERABLES Final Res ult Performing Organization Address City/[facility]/ZIP Co de Phone Number MILAD[address] [address] * (ABNORMAL) Allergen Maple/Box elder (tree) IgE (06/20/2025 4:57 PM CDT) Maple/box elder IgE 1.49(H) 0.00 - 0.34 kUnits/L Comment:Testing performed by : [facility], [address] [place] [address], [id number] Blood 06/20/2025 4:57 PM CDT 06/20/2025 7:26 PM CDT Narrative [facility] 06/26/2025 9:00 PM CDT TO BE DRAWN @ [facility] Amirah Marcos PROOF CLERK LAB BLOOD ORDERABLES Final Res ult Performing Organization Address [facility] Co de Phone Number [address] [address] * (ABNORMAL) Allergen Toxey red (tree) IgE (06/20/2025 4:57 PM CDT) Toxey IgE 1.27(H) 0.00 - 0.34 kUnits/L Comment:Testing performed by : [facility], [address] [place] [address]., [id number] Blood 06/20/2025 4:57 PM CDT 06/20/2025 7:26 PM CDT Narrative [facility] 06/26/2025 9:00 PM CDT TO BE DRAWN @ [facility] Amirah Marcos PROOF CLERK LAB BLOOD ORDERABLES Final Res ult Performing Organization Address City/[facility] Co de Phone Number [address] [address] * B-SCAN ULTRASOUND [id number] - OU - BOTH EYES (06/20/2025 12:19 PM CDT) Anatomical Region Laterality Modality Head Ultrasound Narrative 06/20/2025 2:02 PM CDT Right Eye Quality was good. Left Eye Quality was good. Notes Hyperechoic signal right optic nerve head, consistent with optic disc drusen. Normal OS. Yusef Zamora MD [facility] ULTRASOUND Fin al Result * OCT, Retina - OU - Both Eyes (06/20/2025 8:22 AM CDT) Central Macular Thickness OS 284 mircometers CONTINUUM Central Macular Thickness OD 285 micrometers CONTINUUM Anatomical Region Laterality Modality Head Other Narrative 06/20/2025 9:39 AM CDT Right Eye Quality was good. Scan locations included subfoveal. Progression has been stable. Findings include normal foveal contour. Macular thickness was 285 micrometers. Left Eye Quality was good. Scan locations included subfoveal. Progression has been stable. Findings include normal foveal contour. Macular thickness was 284 mircometers. Notes GCL OD: 88 OS: 88 Normal macular and ganglion cell layer (GCL) thickness both eyes (OU). Stable both eyes (OU). Yusef Zamora MD OPH TOMOGRAPHY Brendan mirlande Result - Final * OCT, Optic Nerve - OU - Both Eyes (06/20/2025 8:21 AM CDT) RNFL OS 106 micrometers CONTINUUM RNFL OD 89 micrometers CONTINUUM Anatomical Region Laterality Modality Head Other Narrative 06/20/2025 9:38 AM CDT Right Eye Reliability was good. Average RNFL thickness 89 micrometers. Left Eye Reliability was good. Average RNFL thickness 106 micrometers. Notes Normal retinal nerve fiber layer thickness OU with focal superior thinning OD. Stable OU. Yusef Zamora MD OPHTH TOMOGRAPHY Fin al Result * (ABNORMAL) Pulmonary Function Test - (06/18/2025 3:31 PM CDT) FVC PRE 6.47 4.84 - 7.29 L [facility] FEV1 PRE 5.09 3.85 - 5.81 L [facility] [id number] 78.64 70.08 - 89.22 % [facility] RWP35-26% PRE 4.70 2.74 - 7.01 L/s [facility] PEF PRE 8.52 8.11 - 12.09 L/s [facility] DLCOc SB 39.04 30.13 - 43.98 ml/(min*mm Hg) [facility] DLCO/VA PRE 4.81 3.56 - 5.78 ml/(min*mm Hg*L) [facility] VA 8.12(A) 7.79 - 7.79 L [facility] TLC PRE 8.41 6.79 - 9.09 L [facility] VC PRE 6.51 4.86 - 6.70 L [facility] IC PRE 5.01(A) 4.18 - 4.18 [address] [facility] FRC PL PRE 3.40 2.65 - 4.63 L [facility] ERV PRE 1.50(A) 1.59 - 1.59 L [facility] RV PRE 1.90 1.37 - 2.72 L [facility] VTG 3.60 L [facility] RAW PRE 1.69(A) 3.06 - 3.06 cmH2O*s/L [facility] Anatomical Region Laterality Modality PFT 06/18/2025 2:59 PM CDT Narrative 06/23/2025 9:20 PM CDT PFT INTERPRETATION Please see technologist's comments mentioned in attached results report. Spirometry: Normal Flow volume loop: Normal/unrevealing Lung volumes: Normal DLCO: Normal diffusion 6 Minute Walk Test/Pulmonary Stress: The patient did not require any supplemental oxygen for hyopxia at the level of exertion achieved Electronically signed by Emilee Martinez MD Sidney Alexandre MD PFT ORDERABLES Final Resul t * CT Chest WO Contrast (06/11/2025 4:52 PM CDT) Anatomical Region Laterality Modality Body N/A Computed Tomogra phy 06/15/2025 3:59 PM CDT Narrative 06/15/2025 4:02 PM CDT EXAM DESCRIPTION: CT CHEST WO CONTRAST REASON FOR STUDY: Respiratory illness, nondiagnostic xray Respiratory illness, nondiagnostic xray, Obstructive sleep apnea, Bulla of lung (HCC), Nonsmoker, History of pneumothorax, Shortness of breath TECHNIQUE: CT scan of the chest performed without intravenous contrast using helical scanning technique. Reconstructed coronal and sagittal MPR images reviewed. All images stored on PACS. Automated exposure control was used as a dose optimization technique for this examination. COMPARISON: Chest CT 09/28/2022. Chest x-ray 05/12/2025 interpreted as negative. FINDINGS: The sensitivity for detection of solid visceral lesions is diminished without the use of intravenous contrast. There are few scattered 1 mm nodules in the periphery of the lung particularly right middle lobe. These are insignificant. No masses worrisome nodules or infiltrative changes. No bronchial thickening or bronchiectasis. Soft tissue window images show normal thyroid. No enlarged mediastinal adenopathy. No coronary or aortic arch plaque. Cardiac chambers normal. No pericardial or pleural effusions. Esophagus normal. Limited upper abdomen normal. Bony structures normal. IMPRESSION: Normal CT chest THIS IS AN ELECTRONICALLY VERIFIED FINAL REPORT 06/15/2025 4:02 PM - Electronically signed by Fernanda Weiss M.D. DA: ADAM Report ID: [id number] Reading Location: Fernanda Miramontes MD - 06/15/2025 EXAM DESCRIPTION: CT CHEST WO CONTRAST REASON FOR STUDY: Respiratory illness, nondiagnostic xray Respiratory illness, nondiagnostic xray, Obstructive sleep apnea, Bulla of lung (HCC), Nonsmoker, History of pneumothorax, Shortness of breath TECHNIQUE: CT scan of the chest performed without intravenous contrastusing helical scanning technique. Reconstructed coronal and sagittal MPR images reviewed. All images stored on PACS. Automated exposure control was usedas a dose optimization technique for this examination. COMPARISON: Chest CT 09/28/2022. Chest x-ray 05/12/2025 interpreted as negative. FINDINGS: The sensitivity for detection of solid visceral lesions is diminished without the use of intravenous contrast. There are few scattered 1 mm nodules in the periphery of the lungparticularly right middle lobe. These are insignificant. No masses worrisome nodulesor infiltrative changes. No bronchial thickening or bronchiectasis. Soft tissue window images show normal thyroid. No enlarged mediastinal adenopathy. No coronary or aortic arch plaque. Cardiac chambers normal.No pericardial or pleural effusions. Esophagus normal. Limited upper abdomen normal. Bony structures normal. IMPRESSION: Normal CT chest THIS IS AN ELECTRONICALLY VERIFIED FINAL REPORT 06/15/2025 4:02 PM - Electronically signed by Fernanda Weiss M.D. DA: ADAM Report ID: [id number] Reading Location: FERNANDA Sidney Alexandre MD IMG CT PROCEDURES Final Res ult * Portable/Home Sleep Study (06/05/2025 2:27 PM CDT) us Sidney Alexandre MD SLEEP CENTER ORDERABLES Fin al Result [facility] [address] [place] [address] * Influenza A/B, RSV, and COVID-19 PCR Nasopharyngeal (05/12/2025 1:34 PM CDT) COVID-19 RNA Negative Negative Comment:Testing performed by : [address] [address] Influenza A RNA Negative Negative TORSTEN Comment:Testing performed by : [address] [address] Influenza B RNA Negative Negative TORSTEN Comment:Testing performed by : [address] [address] RSV RNA Negative Negative TORSTEN Comment: Interpretive data: Testing performed by [facility]. This test is performed using the [employer] Xpert Xpress CoV-2/Flu/RSV plus assay. This is a multiplex, real-time reverse transcriptase PCR assay intended for the qualitative detection of nucleic acid from SARS-CoV-2, influenza A, influenza B, and respiratory syncytial virus. This assay has been cleared by the [place] Food and Drug administration. The performance characteristics have been verified by the [facility]. Results must be considered in the clinical context, and a negative result does not rule out infection. Interpretive Data last revised 2023 Testing performed by: [address] [address] Nasopharyngeal 05/12/2025 1: 34 PM CDT 05/12/2025 1:36 PM CDT Chad VAUGHN - 05/12/2025 2:15 PM CDT Is the Patient experiencing symptoms consistent with COVID?->Yes Tiki Vallejo MD LAB MICROBIOLOGY - GEN ERAL ORDERABLES Final Result T[facility]EN [facility] Department [place] [address] * Troponin T high-sensitivity 2-hour (05/12/2025 1:32 PM CDT) Trop T hs <6 <=22 ng/L Comment: Interpretive Data For further hscTnT resources including the diagnostic algorithm and an aid in interpretation, copy and paste this link: https://nrl.testcatalog.org/show/hsTrop Current Interpretive Data last revised 2020. Testing performed by: [address] [address] Trop T hs delta -1 ng/L TORSTEN VAUGHN Comment:Testing performed by : [address] [address] Trop T hs interp Insignificant TORSTEN VAUGHN Comment:Testing performed by : [address] [address] Blood 05/12/2025 1:32 PM CDT 05/12/2025 1:37 PM CDT us Ar LAWSON LAB BLOOD ORDERABL ES Final Result Performing Organization Address [facility] Co de Phone Number TORSTEN [facility] [employer] [place] [address] * D-dimer, quantitative (05/12/2025 12:51 PM CDT) D-Dimer <270 <=499 ng/mL FEU Comment: Interpretive data FDA approved the D-dimer, in conjunction with a low or moderate pretest probability score, to exclude venous thromboembolic events (VTE) (PE and DVT) in outpatients when the D-dimer result is < 500 ng/ml FEU. Evidence supports using an age-adjusted D-dimer cut-off for outpatients older than 50 (age x 10) to improve specificity without sacrificing sensitivity. Example: age 68, VTE cut-off 680 ng/ml FEU. References; Schouten HT et al. Brit Med J. 2013;346:f2492. Kiley et al. Annals Int Med. 2015;163:701-11. Current interpretive data was last revised on 2019. Testing performed by: [facility], [address] [place] [address]., [address] Blood 05/12/2025 12:5 1 PM CDT 05/12/2025 12:55 PM CDT us Tiki Vallejo MD LAB BLOOD ORDERABLES F inal Result Performing Organization Address [facility] Co de Phone Number TORSTEN [address] [facility] [place] [address] * XR Chest PA Lateral 2 Views (If patient hemodynamically stable and ambulatory) (05/12/2025 11:54 AMCDT) Anatomical Region Laterality Modality Body, Chest N/A Computed Radiogr aphy 05/12/2025 12:0 1 PM CDT Narrative 05/12/2025 12:02 PM CDT EXAM DESCRIPTION: XR CHEST PA LATERAL 2 VIEWS REASON FOR STUDY: Shortness of breath Pt states having a hard time getting air today TECHNIQUE: Frontal and lateral radiographic view(s) of the chest. COMPARISON: 04/03/2024 FINDINGS: The heart, mediastinum, and pulmonary vasculature are grossly stable. There is no definite evidence of a pneumothorax. There is no definite evidence of a focal consolidation or pleural effusion. The osseous structures are acutely grossly unremarkable. IMPRESSION: 1. No acute cardiopulmonary abnormality. THIS IS AN ELECTRONICALLY VERIFIED FINAL REPORT 05/12/2025 12:02 PM - Electronically signed by Mirta Harding D.O. PS: PS Report ID: [id number] Reading Location: [id number] Procedure Note Mirta Harding, DO - 05/12/2025 EXAM DESCRIPTION: XR CHEST PA LATERAL 2 VIEWS REASON FOR STUDY: Shortness of breath Pt states having a hard time getting air today TECHNIQUE: Frontal and lateral radiographic view(s) of the chest. COMPARISON: 04/03/2024 FINDINGS: The heart, mediastinum, and pulmonary vasculature are grossly stable. There is no definite evidence of a pneumothorax. There is no definite evidence of a focal consolidation or pleural effusion. The osseous structures are acutely grossly unremarkable. IMPRESSION: 1. No acute cardiopulmonary abnormality. THIS IS AN ELECTRONICALLY VERIFIED FINAL REPORT 05/12/2025 12:02 PM - Electronically signed by Mirta Harding D.O. PS: PS Report ID: [id number] Reading Location: [id number] Tiki Vallejo MD IMG XR PROCEDURES Wilma l Result * Troponin T high-sensitivity series (baseline, 2hr, 4hr, 6hr) (05/12/2025 11:46 AM CDT) Trop T hs 7 <=22 ng/L Comment: Interpretive Data For further hscTnT resources including the diagnostic algorithm and an aid in interpretation, copy and paste this link: https://nrl.testcatalog.org/show/hsTrop Current Interpretive Data last revised 2020. Testing performed by: [address] [address] Blood 05/12/2025 11:4 6 AM CDT 05/12/2025 11:50 AM CDT us Tiki Vallejo MD LAB BLOOD ORDERABLES F inal Result Performing Organization Address City/[facility]/ZIP Co de Phone Number TORSTEN [address] [place] [employer] [place] [address] * eGFR (05/12/2025 11:46 AM CDT) eGFR >90 >=60 mL/min/1. 73 m2 Comment: Interpretive Data Reference Interval Normal >/= 90 mL/min/1.73m2 Mildly decreased* 60 - 89 mL/min/1.73m2 Mildly to moderately decreased 45 - 59 mL/min/1.73m2 Moderately to severely decreased 30 - 44 mL/min/1.73m2 Severely decreased 15 - 29 mL/min/1.73m2 Kidney Failure < 15 mL/min/1.73m2 *Relative to young adult level Estimated glomerular filtration rate is determined by the 2020 CKD-EPI equation recommended by the National Kidney Foundation (A Unifying Approach to GFR Estimation: Recommendations of the NKF-ASK Task Force on Reassessing the Inclusion of Race in Diagnosing Kidney Disease, JASN 2020). The CKD-EPI equation should not be used for patients with unstable renal function and has not been validated in children and those over 70. Current interpretive data was last reviewed 2021. Testing performed by: [address] [address] Blood 05/12/2025 11:4 6 AM CDT 05/12/2025 11:50 AM CDT us Tiki Vallejo MD LAB BLOOD ORDERABLES F inal Result Performing Organization Address City/[facility]/ZIP Co de Phone Number TORSTEN [address] [place] [place] [address] * Differential, auto (05/12/2025 11:46 AM CDT) Neutrophil abs 3.80 1.50 - 6.50 K/cumm Comment:Testing performed by : [address] [address] Imm gran abs 0.01 0.00 - 0.10 K/cumm [facility] Comment:Testing performed by : [address] [address] Lymphocyte abs 1.83 0.80 - 3.30 K/cumm [facility] Comment:Testing performed by : [address] [address] Monocyte abs 0.36 0.20 - 0.80 K/cumm [facility] Comment:Testing performed by : [address] [address] Eosinophil abs 0.23 0.00 - 0.50 K/cumm [facility] Comment:Testing performed by : [address] [address] Basophil abs 0.03 0.00 - 0.10 K/cumm [facility] Comment:Testing performed by : [address] [address] Neutrophil pct 60.6 % [facility] Comment: Interpretive Data Percent cell count reference ranges are not reported, since discordance with absolute values may lead to misinterpretation of CBC data. Current Interpretive Data was last revised on 2017. Testing performed by: [address] [address] Imm gran pct 0.2 % [facility] Comment: Interpretive Data Percent cell count reference ranges are not reported, since discordance with absolute values may lead to misinterpretation of CBC data. Current Interpretive Data was last revised on 2017. Testing performed by: [address] [address] Lymphocyte pct 29.2 % [facility] Comment: Interpretive Data Percent cell count reference ranges are not reported, since discordance with absolute values may lead to misinterpretation of CBC data. Current Interpretive Data was last revised on 2017. Testing performed by: [address] [address] Monocyte pct 5.8 % [facility] Comment: Interpretive Data Percent cell count reference ranges are not reported, since discordance with absolute values may lead to misinterpretation of CBC data. Current Interpretive Data was last revised on 2017. Testing performed by: [address] [address] Eosinophil pct 3.7 % [facility] Comment: Interpretive Data Percent cell count reference ranges are not reported, since discordance with absolute values may lead to misinterpretation of CBC data. Current Interpretive Data was last revised on 2017. Testing performed by: [address] [address] Basophil pct 0.5 % TORSTEN Comment: Interpretive Data Percent cell count reference ranges are not reported, since discordance with absolute values may lead to misinterpretation of CBC data. Current Interpretive Data was last revised on 2017. Testing performed by: [address] [address] Blood 05/12/2025 11:4 6 AM CDT 05/12/2025 11:50 AM CDT us Tiki Vallejo MD LAB BLOOD ORDERABLES F inal Result Performing Organization Address [facility]/ZIP Co de Phone Number [address] Department [place] [address] * Thyroid Function [place] (05/12/2025 11:46 AM CDT) TSH 2.18 0.30 - 4.20 mcIUnit/mL Comment:Testing performed by : [address] [address] Blood 05/12/2025 11:4 6 AM CDT 05/12/2025 11:50 AM CDT us Tiki Vallejo MD LAB BLOOD ORDERABLES F inal Result Performing Organization Address City/[facility]/ZIP Co de Phone Number [address] Department [place] [address] * CBC with auto differential (05/12/2025 11:46 AM CDT) WBC 6.26 3.80 - 9.90 K/cumm Comment:Testing performed by : [address] [address] Hgb 14.6 13.0 - 17.5 g/dL TORSTEN Comment:Testing performed by : [address] [address] Hct 41.6 38.9 - 50.3 % [facility] Comment:Testing performed by : [address] [address] Plt 203 150 - 400 K/cumm [facility] Comment:Testing performed by : [address] [address] MPV 9.5 9.1 - 12.3 fL [place] Comment:Testing performed by : [address], [address] RBC 5.00 4.30 - 5.80 M/cumm [facility] Comment:Testing performed by : [address] [address] MCV 83.2 81.3 - 96.4 fL [facility] Comment:Testing performed by : [address] [address] MCH 29.2 27.1 - 33.3 pg [facility] Comment:Testing performed by : [address] [address] MCHC 35.1 32.3 - 35.7 g/dL [facility] Comment:Testing performed by : [address], [address] RDW CV 12.6 11.1 - 14.9 % [facility] Comment:Testing performed by : [address] [address] RDW SD 37.9 35.7 - 48.1 fL [facility] Comment:Testing performed by : [address] [address] NRBC abs 0.00 0.00 - 0.01 K/cumm [facility] Comment:Testing performed by : [address] [address] Blood 05/12/2025 11:4 6 AM CDT 05/12/2025 11:50 AM CDT Tiki Vallejo MD LAB BLOOD ORDERABLES F inal Result Performing Organization Address [facility] de Phone Number [address] [place] [address] * Magnesium (05/12/2025 11:46 AM CDT) [facility] Magnesium 2.1 1.4 - 2.5 mg/dL Comment:Testing performed by : [address] [address] Blood 05/12/2025 11:4 6 AM CDT 05/12/2025 11:50 AM CDT Tiki Vallejo MD LAB BLOOD ORDERABLES F inal Result Performing Organization Address [facility] de Phone Number [address] [place] [address] * (ABNORMAL) Comprehensive metabolic panel (05/12/2025 11:46 AM CDT) [facility] Sodium 139 135 - 145 mmol/L Comment:Testing performed by : [address] [address] Potassium, pl 4.0 3.3 - 4.9 mmol/L [facility] Comment:Testing performed by : [address] [address] Chloride 102 97 - 110 mmol/L [facility] Comment:Testing performed by : [address] [address] CO2 24 22 - 32 mmol/L [facility] Comment:Testing performed by : [address] [address] Anion gap 13 2 - 15 mmol/L [facility] Comment:Testing performed by : [address] [address] BUN 12 6 - 25 mg/dL [facility] Comment:Testing performed by : [address] [address] Creatinine 0.69(L) 0.80 - 1.30 mg/dL [facility] Comment:Testing performed by : [address] [address] Glucose 93 70 - 199 mg/dL [facility] Comment: Interpretive Data Fasting glucose >/= 126 mg/dl is diagnostic for diabetes. Fasting is defined as no caloric intake for at least 8 hours. Fasting glucose between 100 mg/dl to 125 mg/dl is diagnostic of prediabetes. In a patient with classic symptoms of hyperglycemia or hyperglycemic crisis, a random glucose >/= 200 mg/dl is diagnostic for diabetes. In the absence of unequivocal hyperglycemia, results should be confirmed by repeat testing. The classification and Diagnosis of Diabetes Diabetes Care 2021; 46: S19-S40. Current interpretive data was last revised 2022. Testing performed by: [address] [address] Calcium 9.9 8.5 - 10.3 mg/dL [facility] Comment:Testing performed by : [address] [address] Bilirubin, total 0.7 0.1 - 1.2 mg/dL [place] Comment:Testing performed by : [address] [address] Protein, pl 7.5 6.5 - 8.5 g/dL [place] Comment:Testing performed by : [address] [address] Albumin 4.7 3.5 - 5.0 g/dL [facility] Comment:Testing performed by : [address] [address] Alk phos 77 40 - 130 Units/L [facility] Comment:Testing performed by : [address] [address] ALT 34 7 - 55 Units/L [facility] Comment:Testing performed by : [facility], [address] [place] [address]., [address] AST 17 10 - 50 Units/L [place] Comment:Testing performed by : [address] [address] Blood 05/12/2025 11:4 6 AM CDT 05/12/2025 11:50 AM CDT us Tiki Vallejo MD LAB BLOOD ORDERABLES F inal Result [facility] [address] [facility] Department [place] [address] * ECG 12 lead (05/12/2025 11:41 AM CDT) Ventricular Rate EKG/Min 68 BPM [facility] Atrial Rate 68 BPM [facility] FL-Interval (MSEC) 194 ms [facility] QRS-Interval (MSEC) 104 ms [facility] QT-Interval (MSEC) 410 ms [facility] QTc 435 ms [facility] P Organ 35 degrees [facility] R Organ -9 degrees [facility] T Organ 17 degrees [facility] Diagnosis Normal sinus rhythm Moderate voltage criteria for LVH, may be normal variant Borderline ECG When compared with ECG of 03-APR-2024 18:05, Nonspecific T wave abnormality no longer evident in Lateral leads Confirmed by REJI MALONEY M.D. ([id number]) on 05/12/2025 5:25:51 PM [facility] 05/12/2025 11:4 1 AM CDT 05/12/2025 5:25 PM CDT us Tiki Vallejo MD ECG ORDERABLES Final Result [facility] from Last 3 Months Insurance [place] Advance Direct[place] For more information, please contact: [phone] * Full Code (Latest Code Status on File) Date Activated Date Inactivated Comments 09/28/2022 10:53 PM 10/01/2022 8:49 PM * Full Code Date Activated Date Inactivated Comments 08/23/2022 5:09 AM 08/26/2022 10:14 PM * Full Code Date Activated Date Inactivated Comments 04/24/2018 12:33 AM 04/25/2018 6:27 PM Care Teams [employer] In[employer] Relationship Specialty Start Date End Date Pato Husain MD [address] [place] [address] PCP - General 08/07/20 Pato Husain MD [address] [place] [address] Family Medicine 08/07/20 Domo Smith MD [address] [place] [address] Surgeon Thoracic Surgery 10/01/22 Sidney Alexandre MD [address] [place] [address] Consulting Physician Pulmonary Disease 10/01/22
--- OUTSIDE RECORDS SUMMARY | 2025-07-07 09:06 | XMS_ITS | Encounter Summary ---
Author Organization [facility] Address [address] [place] [address] Care Team Providers Care Inseam Leveler Name Role Phone Pato Husain MD Primary Care Provider [phone] Encounter Details Date Type Department Care Team (Late st Contact Info) Description 04/04/2024 Ophth Exam [facility] - Ophthalmology [address] [place] [id number] Raffy Chamorro MD [address] [facility] [place] [id number] Social History Tobacco Use Types Packs/Day Years Used Date Smoking Tobacco: Never Smokeless Tobacco: Never Alcohol Use Standard Drinks/Week Comments Not Currently 0 (1 standard drink = 0.6 oz pur e alcohol) Sex and Gender Information Value Date Recorded Sex Assigned at Not on file Legal Sex Male 9:23 PM [employer] OPER[employer] Gender Identity Not on file Sexual Orientation Not on file documented as of this encounter Functional Status documented as of this encounter Plan of Treatment Not on file documented as of this encounter Visit Diagnoses Not on filedocumented in this encounter Care Teams Inseam Leveler Relationship Specialty Start Date End Date Pato Husain MD [address] [facility] [place] [id number] PCP - General Family Medicine 05/29/24 documented as of this encounter
== END 2025-07-07 08:39 | disposition home or self-care (01) ==
PROVIDERS: PCP Emergency Medicine; Visit Provider Internal Medicine Cardiovascular Disease
DX: R07.9 Chest pain, unspecified (principal)
CPT/HCPCS: 93017; 93306